=== PATIENT | male | born 1930 | race Caucasian/White ===

== ENCOUNTER 2018-10-04 08:07 | Inpatient (IN) | payer MEDICARE, OTHER ==
[2015-04-10 13:18] VITALS: Ht 175.3 cm; Wt 79.9 kg
[~2018-10-04] VITALS: Ht 175.3 cm; Wt 79.9 kg
[2018-10-04] VITALS (8 sets, daily range): BP systolic 103–138; BP diastolic 56–79
[~2018-10-04 08:07] MED LIST: AMI200 PO; ASPI81TA86 PO; ATOR20TA22 PO; ATOR20TA65 PO; BIS5 PO; CARV6.2574 PO; CEPH500C24 PO; CHOL200018 PO; CYA1000 PO; DOC100 PO; FLU60VIA41 IM; LEVO-85 PO; LEVO137T23 PO; METO25TA93 PO; METR45CR9 TP; OMEP-153 PO; OXYGENHOME INH; PNEU0.5D3 IM; SENN17.27 PO; SIMV-42 PO; SIMV-54 PO; TRET15GE13 TP; VIT-9 PO; WAR25 PO; WARF5TAB23 PO
--- NOTE | 2018-10-04 08:23 | ER Report ---
History and Physical Time Seen By MD: 08:23 Hx. of Stated Complaint: patient report that he has a bowel blockage. last bowel movement was 3 days ago HPI/ROS History of CABG and known inguinal hernia. On coumadin for a transient episode of afib. Presents to the ED for no BM in 3 days. Also reports worsening pain for a week at the site of his inguinal hernia, but he does not elaborate on the details. No n/v. Not passing gas. No fever/chills. No other complaints. Remainder of the 14 system rev: Yes Allergies: Coded Allergies: No Known Drug Allergies (Verified , 06/25/10) Home Meds Active Scripts Levothyroxine Sodium (LEVOTHYROXINE SODIUM) 137 Mcg Tablet, 1 TAB PO QDAY, #90 TAB 4 Refills Prov:MARCELLA JENKINS PHARMD 07/23/18 Warfarin Sodium (WARFARIN SODIUM) 5 Mg Tablet, 0.5 TAB PO QDAY, #90 TAB 3 Refills 1/2 tab Or 1 tab daily as directed by your doctor. Prov:MARCELLA JENKINS PHARMD 08/21/17 Carvedilol (COREG) 6.25 Mg Tablet, 1 TAB PO BID, #180 TAB 4 Refills Prov:MARCELLA JENKINS PHARMD 01/11/17 Reported Medications Oxygen (OXYGEN) Inha, 2 L INH HS, L 11/26/17 Cholecalciferol (Vitamin D3) (VITAMIN D) 2,000 Unit Tablet, 1 TAB PO QDAY, CAPSULE 05/03/15 Vit A/Vit C/Vit E/Zinc/Copper (PRESERVISION AREDS TABLET) 1 Each Tablet, 1 TAB PO QDAY, TAB 05/03/15 Aspirin (ASPIRIN EC) 81 Mg Tablet.dr, 1 TAB PO QDAY 04/13/14 Discontinued Reported Medications Cyanocobalamin (Vitamin B-12) (VITAMIN B-12) 1,000 Mcg Tablet, 0.5 TAB PO QDAY, CAPSULE 06/05/17 Reviewed Nurses Notes: Yes Old Medical Records Reviewed: Yes Hx Smoking: No Smoking Status: Former Smoker Exposure to Second Hand Smoke?: Yes Hx Substance Use Disorder: No Hx Alcohol Use: Yes Constitutional Vital Sign - Last 24 Hours 10/04/18 10/04/18 10/04/18 10/04/18 08:10 08:12 08:30 08:37 Temp 97.5 Pulse 74 68 Resp 24 B/P (MAP) 167/79 167/79 (108) 145/69 (94) Pulse Ox 85 94 O2 Delivery Room Air 10/04/18 10/04/18 10/04/18 10/04/18 08:42 09:00 09:30 09:42 Pulse 67 66 Resp 93 B/P (MAP) 154/76 (102) 146/68 (94) Pulse Ox 95 94 Physical Exam General Appearance: The patient is alert, has no immediate need for airway protection and no current signs of toxicity. Eyes: Pupils equal and round no injection. Respiratory: Chest is non tender, lungs are clear to auscultation. Cardiac: regular rate and rhythm Gastrointestinal: Abdomen is soft and mildly distended with diffuse TTP, no masses, bowel sounds normal. : large left inguinal hernia. Firm and unable to reduce. TTP Extremities have full range of motion and are non tender. Skin: No rashes or lesions. Medical Decision Making Data Points Result Diagram: 10/04/18 0822 10/04/18 0822 Laboratory Hematology Test 10/04/18 08:22 Red Blood Count 5.01 M/uL (4.00-5.60) Mean Corpuscular Volume 100.1 fL (80.0-96.0) Mean Corpuscular Hemoglobin 33.8 pg (26.0-33.0) Mean Corpuscular Hemoglobin Concent 33.7 g/dL (32.0-36.0) Red Cell Distribution Width 13.7 % (11.5-14.5) Mean Platelet Volume 7.7 fL (7.2-11.1) Neutrophils (%) (Auto) 85.4 % (39.4-72.5) Lymphocytes (%) (Auto) 4.8 % (17.6-49.6) Monocytes (%) (Auto) 9.3 % (4.1-12.4) Eosinophils (%) (Auto) 0.1 % (0.4-6.7) Basophils (%) (Auto) 0.4 % (0.3-1.4) Nucleated RBC Relative Count (auto) 0.0 /100WBC Neutrophils # (Auto) 13.8 K/uL (2.0-7.4) Lymphocytes # (Auto) 0.8 K/uL (1.3-3.6) Monocytes # (Auto) 1.5 K/uL (0.3-1.0) Eosinophils # (Auto) 0.0 K/uL (0.0-0.5) Basophils # (Auto) 0.1 K/uL (0.0-0.1) Nucleated RBC Absolute Count (auto) 0.01 K/uL Prothrombin Time 32.4 seconds (12.0-14.4) Prothromb Time International Ratio 3.08 Activated Partial Thromboplast Time 51 seconds (23-35) Sodium Level 139 mmol/L (137-145) Potassium Level 4.7 mmol/L (3.5-5.0) Chloride Level 102 mmol/L (98-107) Carbon Dioxide Level 21 mmol/L (22-30) Blood Urea Nitrogen 21 mg/dl (9-21) Creatinine 1.00 mg/dl (0.66-1.25) Glomerular Filtration Rate Calc > 60.0 Random Glucose 113 mg/dl (75-110) Lactate 2.2 mmol/L (0.7-2.1) Calcium Level 9.3 mg/dl (8.4-10.2) Total Bilirubin 2.1 mg/dl (0.2-1.3) Aspartate Amino Transf (AST/SGOT) 23 U/L (0-35) Alanine Aminotransferase (ALT/SGPT) 24 U/L (0-56) Alkaline Phosphatase 83 U/L (0-126) Total Protein 6.8 g/dl (6.3-8.2) Albumin 4.1 g/dl (3.5-5.0) Chemistry Test 10/04/18 08:22 White Blood Count 16.2 k/uL (4.5-11.0) Red Blood Count 5.01 M/uL (4.00-5.60) Hemoglobin 16.9 g/dL (14.0-18.0) Hematocrit 50.2 % (42.0-52.0) Mean Corpuscular Volume 100.1 fL (80.0-96.0) Mean Corpuscular Hemoglobin 33.8 pg (26.0-33.0) Mean Corpuscular Hemoglobin Concent 33.7 g/dL (32.0-36.0) Red Cell Distribution Width 13.7 % (11.5-14.5) Platelet Count 195 K/uL (150-450) Mean Platelet Volume 7.7 fL (7.2-11.1) Neutrophils (%) (Auto) 85.4 % (39.4-72.5) Lymphocytes (%) (Auto) 4.8 % (17.6-49.6) Monocytes (%) (Auto) 9.3 % (4.1-12.4) Eosinophils (%) (Auto) 0.1 % (0.4-6.7) Basophils (%) (Auto) 0.4 % (0.3-1.4) Nucleated RBC Relative Count (auto) 0.0 /100WBC Neutrophils # (Auto) 13.8 K/uL (2.0-7.4) Lymphocytes # (Auto) 0.8 K/uL (1.3-3.6) Monocytes # (Auto) 1.5 K/uL (0.3-1.0) Eosinophils # (Auto) 0.0 K/uL (0.0-0.5) Basophils # (Auto) 0.1 K/uL (0.0-0.1) Nucleated RBC Absolute Count (auto) 0.01 K/uL Prothrombin Time 32.4 seconds (12.0-14.4) Prothromb Time International Ratio 3.08 Activated Partial Thromboplast Time 51 seconds (23-35) Glomerular Filtration Rate Calc > 60.0 Lactate 2.2 mmol/L (0.7-2.1) Calcium Level 9.3 mg/dl (8.4-10.2) Total Bilirubin 2.1 mg/dl (0.2-1.3) Aspartate Amino Transf (AST/SGOT) 23 U/L (0-35) Alanine Aminotransferase (ALT/SGPT) 24 U/L (0-56) Alkaline Phosphatase 83 U/L (0-126) Total Protein 6.8 g/dl (6.3-8.2) Albumin 4.1 g/dl (3.5-5.0) Coagulation Test 10/04/18 08:22 Prothrombin Time 32.4 seconds Prothromb Time International Ratio 3.08 Activated Partial Thromboplast Time 51 seconds ED Course/Re-evaluation ED Course Incarcerated left inguinal hernia. Pt. otherwise stable. INR 3, so given Vit K and FFP. Dr. Toya Monroy is in the ED, and will take the pt. to the OR for emergent of incarcerated hernia. Decision to Disposition Date: Oct 04, 2018 Decision to Disposition Time: 11:16 Depart Departure Latest Vital Signs Vital Signs Date Time Temp Pulse Resp B/P (MAP) Pulse Ox O2 Delivery O2 Flow Rate FiO2 10/04/18 09:42 66 93 94 10/04/18 09:30 146/68 (94) 10/04/18 08:10 97.5 Room Air Impression: Primary Impression: Incarcerated left inguinal hernia Condition: Improved Disposition: ADMIT FROM ER TO OR Referrals: NIXON VERDUGO MD (PCP) GLORY HARRINGTON MD Oct 04, 2018 08:23
[2018-10-04] MEDS ORDERED: NS(*) 0.9% 500 ML BAG 500 ML IV ONE ×2 (08:25→10:30)
[2018-10-04 08:36] LABS: PLATELET COUNT, AUTOMATED 195 K/uL (150-450)
[2018-10-04 08:48] LABS: INR 3.08
--- NOTE | 2018-10-04 09:50 | RADIOLOGY IMAGING REPORT ---
FACILITY: [facility] - [place] PATIENT NAME: Tim Fowler : 1930 MR: [id number] V: [id number] EXAM DATE: ORDERING PHYSICIAN: GLORY HARRINGTON TECHNOLOGIST: Location: [facility] Patient: Tim Fowler : 1930 Visit/Account:[id number] Date of Sevice: 10/04/2018 CT scan of the abdomen and pelvis with contrast. HISTORY: Possible incarcerated hernia. COMPARISON: Abdominal ultrasound 04/15/2015. 3 mm and [address] images were obtained of the abdomen and pelvis using 85 mL intravenous I sovue-370. No oral contrast. One of the following dose optimization techniques was utilized in the pe rformance of this exam: Automated exposure control; adjustment of the mA and/or kV according to the p atient's size; or use of an iterative reconstruction technique. Specific details can be referenced in the facility's radiology CT exam operational policy. FINDINGS: Streaky densities are present in the left posterior lung base. A tiny amount of fluid is present in t he left posterior costophrenic sulcus. The coronary arteries are partially calcified. A small direct hiatal hernia is present. The liver and spleen are normal in size. The gallbladder is upper limits of normal in size. The bile ducts are unremarkable. The pancreas is normal in size. The visceral arteries are calcified. The abdo enmanuel aorta and iliac arteries are calcified and tortuous. The kidneys and adrenal glands are normal in size. Multiple cysts measuring up to 3.9 cm in diameter are scattered in the right kidney. Several cysts measuring less than 2 cm in diameter are scattered in the left kidney. A large inguinal hernia is present on the left. The hernia sac measures 9.1 cm in greatest transverse diameter. The hernia contains a loop of sigmoid colon. A moderate amount of fluid surrounds the inca rcerated bowel loop. Mild mural thickening and a few diverticula are present in the incarcerated loop . Moderate numbers of diverticula are scattered elsewhere in the left colon. Moderate amount of gas a nd stool are scattered in the transverse colon and right colon. The appendix is not well-visualized. No free air is identified. Mild edema is present in the sigmoid mesentery. The urinary bladder is nonopacified. The bladder slightly displaced to the right. The prostate gland is enlarged measuring 6.4 cm in transverse diameter. The prostate gland is partially calcified. Degen erative changes are present in the spine and hips. IMPRESSION: Large incarcerated left inguinal hernia. Enlarged prostate gland. Moderate colonic diverticulosis. Atherosclerosis. Bilateral renal cysts. Trace left pleural effusion. Left basilar subsegmental atelectasis or pleural parenchymal scars. Small hiatal hernia. Results were discussed with GLORY HARRINGTON at 10/04/2018 9:45 AM. Report Dictated By: Mo Muhammad MD at 10/04/2018 9:34 AM Report E-Signed By: Mo Muhammad MD at 10/04/2018 9:46 AM WSN:[id number]
[2018-10-04] MEDS ORDERED: PHYTONADIONE 10 MG/ML AMP IM ONE (09:55)
[2018-10-04] MEDS ORDERED: IOPAMIDOL 76% 100 ML INFUS BTL 100 ML ONE (10:01)
--- NOTE | 2018-10-04 10:04 | EKG ---
FACILITY: [facility] PATIENT NAME: LEORA TAYLOR : [id number] MR: [id number] V: [id number] EXAM DATE: ORDERING PHYSICIAN: GLORY HARRINGTON TECHNOLOGIST: [place]ER[place] Test Reason : ABD PAIN Blood Pressure : / mmHG Vent. Rate : 065 BPM Atrial Rate : 065 BPM P-R Int : 208 ms QRS Dur : 104 ms QT Int : 408 ms P-R-T Axes : 034 020 041 degrees QTc Int : 424 ms Normal sinus rhythm Inferior infarct , age undetermined Abnormal ECG Confirmed by MAGNO MCCOY ([id number]) on 10/04/2018 5:43:51 PM Referred By: LEN Confirmed By:MAGNO MCCOY
[2018-10-04] MEDS ORDERED: PHYTONADIONE (*) 10 MG/ML AMP 10 MG in NS(*) 0.9% 50 ML BAG 50 ML IVPB ONE (10:05)
[2018-10-04] MEDS ORDERED: NORMOSOL R SOLN(*) 1000 ML BAG 1,000 ML IV ONE (10:30)
[2018-10-04] MEDS ORDERED: FAMOTIDINE(*) 20MG/50ML PREMIX 50 ML IVPB ONE (10:30)
--- NOTE | 2018-10-04 10:35 | Gen Surgery History & Physical ---
History of Present Illness Chief Complaint Constipation History of Present Illness 88 year old male who has a longstanding history of L inguinal hernia. He states that he noted his groin bulging three days ago. He has not had a bowel movement since that time. There has been some associated pain in the groin. He denies any abdominal pain or nausea/vomiting. Last meal was yesterday morning. No fevers. He is on coumadin for a history of afib ten years ago. No previous abdominal surgeries. History Unable To Obtain Past Medical: Medical history has been reviewed Home Meds Active Scripts Levothyroxine Sodium (LEVOTHYROXINE SODIUM) 137 Mcg Tablet, 1 TAB PO QDAY, #90 TAB 4 Refills Prov:MARCELLA JENKINS PHARMD 07/23/18 Warfarin Sodium (WARFARIN SODIUM) 5 Mg Tablet, 0.5 TAB PO QDAY, #90 TAB 3 Refills 1/2 tab Or 1 tab daily as directed by your doctor. Prov:MARCELLA JENKINS PHARMD 08/21/17 Carvedilol (COREG) 6.25 Mg Tablet, 1 TAB PO BID, #180 TAB 4 Refills Prov:MARCELLA JENKINS PHARMD 01/11/17 Reported Medications Oxygen (OXYGEN) Inha, 2 L INH HS, L 11/26/17 Cholecalciferol (Vitamin D3) (VITAMIN D) 2,000 Unit Tablet, 1 TAB PO QDAY, CAPSULE 05/03/15 Vit A/Vit C/Vit E/Zinc/Copper (PRESERVISION AREDS TABLET) 1 Each Tablet, 1 TAB PO QDAY, TAB 05/03/15 Aspirin (ASPIRIN EC) 81 Mg Tablet.dr, 1 TAB PO QDAY 04/13/14 Discontinued Reported Medications Cyanocobalamin (Vitamin B-12) (VITAMIN B-12) 1,000 Mcg Tablet, 0.5 TAB PO QDAY, CAPSULE 06/05/17 Allergies: Coded Allergies: No Known Drug Allergies (Verified , 06/25/10) Patient History: FH myocardial infarction male first degree age known FH: CHF (congestive heart failure) FATHER, , Age:79 FH: colon cancer FATHER, , Age:79, Onset:64 FH: diabetes mellitus BROTHER OR SISTER, , Age:81 FH: myocardial infarction FATHER, , Age:79, Onset:54 FH: stroke BROTHER OR SISTER, , Age:81 Review of Systems All Systems Reviewed/Normal: Yes, Except as Noted Constitutional: No Fever Cardiovascular: No Chest Pain Respiratory: No Shortness of Breath Gastrointestinal: No Nausea, No Vomiting; Constipation Exam General Appearance: Alert, Awake, No Acute Distress Neuro: No Gross deficits ENT: Moist Mucous Membranes Cardiovascular: Regular Rate and Rhythm Respiratory: No Respiratory Distress GI: Abd Soft and Non-Tender : Other (there is an incarcerated hernia present in the left groin; there is overlying cutaneous erythema; it is tender to palpation) Extremities: Warm, Perfused Integumentary: Skin Intact without Lesion / Mass Psych: Alert & Oriented X3, Appropriate Mood & Affect Medical Decision Making Data Points Result Diagram: 10/04/1882110/04/18 08 EKG / Imaging Monitor Interpretation: Normal Sinus Rhythm Assessment and Plan Problems: (1) Incarcerated left inguinal hernia Status: Acute Assessment & Plan: 10/04/18: 88 year old male with history of CAD s/p CABG in 2008 with paroxysmal afib post op, chronically anticoagulated on Coumadin who presents with three day history of incarcerated left inguinal hernia. Clinical and radiographic findings are consistent with incarcerated sigmoid colon, likely bowel ischemia. He has a leukocytosis, overlying cutaneous erythema, and a lactic acidosis. I have explained that if resection of the sigmoid colon is indicated, that he will need a colostomy. We will repair the hernia primarily if there is bowel resection, we will use mesh if there is no incarceration. Due to his anticoagulation, will reverse with 2U FFP and Vitamin K 10mg IV x 1. Will start zosyn. I have recommended diagnostic laparoscopy, possible bowel resection, possible ostomy, repair of L inguinal hernia with possible mesh. Informed consent obtained. Will recheck INR after FFP infusion, and proceed to surgery once INR<2. (2) Paroxysmal atrial fibrillation Status: Acute Time Spent: > 30 min Venous Thromboembolism VTE Risk Physician Assess for VTE Risk: Yes Antithrombotics Is Pt On Any Antithrombotics?: Yes YONI MICHAUD MD Oct 04, 2018 10:35
[2018-10-04] MEDS: PIPERACILLIN/TAZO*3.375GM VIAL 3.375 GM in NS(*) 0.9% 100 ML MINI-BAG 100 ML IVPB SCH ×3 (10:53→22:00)
--- NOTE | 2018-10-04 11:00 | RADIOLOGY IMAGING REPORT ---
FACILITY: [facility] - [place] PATIENT NAME: Tim Fowler : 1930 MR: [id number] V: [id number] EXAM DATE: ORDERING PHYSICIAN: GLORY HARRINGTON TECHNOLOGIST: Location: [facility] Patient: Tim Fowler : 1930 Visit/Account:[id number] Date of Sevice: 10/04/2018 Technique: CHEST SINGLE AP HISTORY: Preop Comparison studies: 04/16/2015 FINDINGS: Increased central vascular markings are noted. There are scattered interstitial lung markin gs. No pleural effusion. The cardiac silhouette is unchanged. IMPRESSION: 1. Unchanged mild central vascular congestion. 2. Chronic lung findings. Report Dictated By: Blaze Frankel DO at 10/04/2018 10:55 AM Report E-Signed By: Blaze Frankel DO at 10/04/2018 10:57 AM WSN:[id number]
[2018-10-04 13:16] LABS: INR 1.52
[2018-10-04] MEDS ORDERED: PROPOFOL EMUL(*) 10MG/ML 20 ML 20 ML ONE (15:06)
[2018-10-04] MEDS ORDERED: ONDANSETRON 4 MG/2 ML VIAL ONE (15:06)
[2018-10-04] MEDS ORDERED: ROCURONIUM BROM 10 MG/ML 10 ML ONE (15:06)
[2018-10-04] MEDS ORDERED: PHENYLEPHRINE 10 MG/1 ML VIAL ONE (15:06)
[2018-10-04] MEDS ORDERED: DEXAMETHASONE SOD PHOS 10MG/ML ONE (15:06)
[2018-10-04] MEDS ORDERED: MIDAZOLAM 2 MG/2 ML VIAL ONE (15:14)
[2018-10-04] MEDS ORDERED: ROPIVACAINE 0.5% 20 ML VIAL ONE ×2 (15:15→17:47)
[2018-10-04] MEDS ORDERED: LIDO/EPI 1% MDV 1:100,000 20ML INFIL ONE (15:15)
[2018-10-04] MEDS ORDERED: ROPIVACAINE 0.2% 20 ML VIAL ONE (15:15)
[2018-10-04] MEDS ORDERED: BUPIV/EPI 0.25% 1:200,000 50ML INFIL ONE (15:15)
[2018-10-04] MEDS ORDERED: NS(*) 0.9% 250 ML BAG 250 ML ONE (15:18)
[2018-10-04] MEDS ORDERED: NS(*) 0.9% 500 ML BAG 500 ML ONE (15:18)
[2018-10-04] MEDS ORDERED: fentaNYL CITR 100 MCG/2 ML AMP ONE ×2 (16:04→16:08)
[2018-10-04] MEDS ORDERED: HYDROmorphone HCL 2 MG/ML SDV ONE (17:27)
[2018-10-04] MEDS ORDERED: SUGAMMADEX SOD 500 MG/5 ML SDV ONE (18:06)
[2018-10-04] MEDS ORDERED: LR(*) 1000 ML BAG 1,000 ML IV PRN (18:32)
[2018-10-04] MEDS ORDERED: ONDANSETRON 4 MG/2 ML VIAL IVP PRN (18:35)
[2018-10-04] MEDS ORDERED: HYDROmorphone HCL 2 MG/ML SDV IVP PRN (18:35)
[2018-10-04] MEDS ORDERED: NALOXONE HCL 0.4 MG/ML VIAL IVP PRN (18:35)
--- NOTE | 2018-10-04 18:41 | Post Operative Note ---
Operative Note - ENT Operative Day Date: Oct 04, 2018 Time: 18:39 Physicians Surgeon: Toya Michaud MD Anesthesia: General endotracheal, Dr. Victor Diagnosis Pre-Op Diagnosis: Incarcerated Left Inguinal hernia Post-Op Diagnosis: same Procedure Findings: viable colon, inflamed; ischemic epiploica Procedure(s): Exploratory laparotomy, reduction of left inguinal hernia, primary repair left inguinal hernia Specimen Removed:(Maybe N/A): n/a Complications: none apparent Fluids Fluids: 2300mL Estimated Blood Loss: 25mL Dictated Date OP Note Dictated: Oct 04, 2018 Time OP Note Dictated: 18:40 TOYA MICHAUD MD Oct 04, 2018 18:41
[2018-10-04] MEDS ORDERED: ACETAMINOPHEN(*)1000 MG/100 ML 100 ML IVPB SCH ×2 (19:00→22:00)
--- NOTE | 2018-10-04 19:48 | OPERATIVE REPORT 1 ---
EVENT DATE: October 04, 2018 SURGEON: Toya Monroy MD ANESTHESIOLOGIST: Tim Victor MD ANESTHESIA: General endotracheal tube. PREOPERATIVE DIAGNOSIS Incarcerated left inguinal hernia. POSTOPERATIVE DIAGNOSIS Incarcerated left inguinal hernia. PROCEDURES PERFORMED 1. Exploratory laparotomy. 2. Reduction of left inguinal hernia. 3. Primary repair, left inguinal hernia. ESTIMATED BLOOD LOSS 25 mL. SPECIMENS None. COMPLICATIONS None apparent. INDICATION FOR THE PROCEDURE The patient is an 88-year-old male with a history of CAD, status post CABG, who presents with a three-day history of left groin bulge and constipation. He underwent workup, which demonstrated a leukocytosis as well as a mild lactic acidosis, and his exam was notable for cutaneous erythema in a region of an incarcerated left inguinal hernia. CT imaging demonstrated a loop of sigmoid colon entrapped within the hernia and associated fluid. The patient is anticoagulated with Coumadin secondary to a history of paroxysmal AFib; therefore, his anticoagulation was reversed with two units of FFP and vitamin K 10 mg. His INR subsequently normalized to 1.5, and we did perform an echocardiogram to confirm an ejection fraction which was improved from his previous echo in 2014 and approximately 40% on most recent echo today. We, therefore, proceeded to the operating room for exploratory laparotomy, possible bowel resection, possible ostomy, and left inguinal hernia repair. The risks, benefits, and alternatives of surgical intervention were explained to the patient. Informed consent was obtained. DETAILS OF THE PROCEDURE Patient was brought to the operating room. He was laid in the supine position. An arterial line was placed by Anesthesia. General anesthesia was then induced without complication. Prior to the induction of anesthesia, bilateral sequential compression devices were placed on his lower extremities. We then positioned, prepped, and draped the patient in the usual sterile fashion, and a timeout was performed confirming the patient, the procedure, and the administration of preoperative antibiotics with Zosyn in the Emergency Department, followed by Ancef 2 g IV in the OR prior to incision. The operation commenced with gaining access to the abdomen through a lower midline abdominal incision. Bovie electrocautery was used to carry the dissection down through the subcutaneous tissues until the abdomen was entered. The hernia was identified, and there was entrapped sigmoid colon as was anticipated, which we were able to reduce. The epiploica were noted to be significantly inflamed, and several of them were necrotic. The colon was also noted to be somewhat inflamed and edematous; however, it did appear viable, and there were no necrotic regions. The necrotic epiploica were excised, and the remainder of the bowel was examined and noted to be pink and well perfused. The lateral attachments of his descending colon appeared to be somewhat entrapped within the hernia sac as well, and so these were taken down with electrocautery. Once we were satisfied with our examination of the bowel and reduction of the hernia, we turned our attention to the left groin. An incision was made, and Bovie electrocautery was used to carry the dissection down through the external oblique fascia until we encountered the inguinal canal. The hernia sac and cord structures were dissected out circumferentially using a combination of blunt and electrocautery dissection. Notably, there was a substantial amount of tissue edema and inflammation in this region. We were able to dissect the hernia sac away from the cord and then created a pursestring around the base of the hernia sac, transected it, and handed it off the field. The hernia sac was then reduced. At this juncture, I elected with a primary Ilda repair of the hernia defect as there was so much edema and inflammation within the groin region, and there was still the potential for bowel resection. Therefore, I proceeded with primary suture repair using 2-0 Prolene in an interrupted fashion between the conjoined tendon and the Yaakov ligament. This was done sequentially until the floor had been reapproximated. We then closed the remainder of the wound in layers using 2-0 Vicryl sutures for the deep layers and then 3-0 Vicryl sutures for Yariel fascia and the more superficial layers. We then noted that the left testicle was in excellent position, and the cord structures were all intact. The dermis was reapproximated using 3-0 Vicryl sutures in a deep dermal fashion. We then turned our attention back to the abdomen, reinspected the descending and sigmoid colon. Again, there was some mild inflammation, but the bowel was all pink and viable. We ran the entirety of the small bowel, and it was all noted to be without evidence of any injury and pink and viable. The remainder of the colon was additionally inspected and was all pink, well perfused, and viable. At this juncture, we felt comfortable with closure of the abdomen. Sutures of 2-0 looped PDS were used to close the fascia. The skin and subcutaneous tissue were copiously irrigated with warm normal saline, and the dermis was reapproximated with 3-0 Vicryl sutures in a deep dermal interrupted fashion. Dermabond was then applied to both of the incisions. At the completion of the case, sponge, instrument, and needle counts were correct times two. I was present and scrubbed for the duration of the procedure and directly responsible for directing all surgical decision making. KATHY
[2018-10-04] MEDS: CARVEDILOL 6.25 MG TAB PO SCH (21:27)
[2018-10-04] MEDS: DOCUSATE SODIUM 100 MG CAP PO SCH (21:27)
[2018-10-05] VITALS (8 sets, daily range): BP systolic 100–134; BP diastolic 38–67
[2018-10-05] MEDS: ACETAMINOPHEN(*)1000 MG/100 ML 100 ML IVPB SCH ×4 (02:59→20:56)
[2018-10-05] MEDS: PIPERACILLIN/TAZO*3.375GM VIAL 3.375 GM in NS(*) 0.9% 100 ML MINI-BAG 100 ML IVPB SCH (04:08)
[2018-10-05 05:36] LABS: PLATELET COUNT, AUTOMATED 144 K/uL (150-450)
[2018-10-05 05:42] LABS: INR 1.27
[2018-10-05] MEDS: LEVOTHYROXINE SOD 0.137 MG TAB PO SCH (05:50)
[2018-10-05] MEDS: CARVEDILOL 6.25 MG TAB PO SCH ×2 (08:26→20:56)
[2018-10-05] MEDS: DOCUSATE SODIUM 100 MG CAP PO SCH ×2 (08:29→20:57)
[2018-10-05] MEDS: ENOXAPARIN 40 MG/0.4ML SYR SC SCH (08:30)
--- NOTE | 2018-10-05 10:09 | General Surgery Progress Note ---
Subjective Progress Notes Subjective Wants to go home. Denies pain. Tolerating clear liquids and is hungry. No BM. Discussed with family and patient plan for discharge as he lives at home alone, and does not currently have running water. Patient Complains of: Cardiovascular: No: Chest Pain Respiratory: No: Shortness of Breath Gastrointestinal: No Nausea, No Vomiting, No Bowel Movement Physical Exam Vital Signs Date Time Temp Pulse Resp B/P (MAP) Pulse Ox O2 Delivery O2 Flow Rate FiO2 10/05/18 08:21 95 Oxy Mask 4.0 10/05/18 06:56 97.8 57 16 129/57 (81) Intake and Output 10/05/18 07:00 Intake Total 3811 ml Output Total 875 ml Balance 2936 ml Intake Oral 100 ml IV Total 3711 ml Output Urine Total 875 ml # Bowel Movements 0 General Appearance: Alert, Awake, No Acute Distress Neuro: No Gross deficits ENT: Moist Mucous Membranes Cardiovascular: Regular Rate and Rhythm Respiratory: No Respiratory Distress GI: Other (soft, nondistended, minimal julee incisional tenderness; dermabond intact, some peripheral ecchymosis at midline incision and left groin incision; no erythema, no drainage, dermabond intact) Extremities: Warm, Perfused Integumentary: Skin Intact without Lesion / Mass Psych: Alert & Oriented X3, Appropriate Mood & Affect Result Diagram: 10/05/1851110/05/18511 Monitor Interpretation: Normal Sinus Rhythm Assessment and Plan Problems: (1) Incarcerated left inguinal hernia Status: Acute Assessment & Plan: 10/04/18: 88 year old male with history of CAD s/p CABG in 2008 with paroxysmal afib post op, chronically anticoagulated on Coumadin who presents with three day history of incarcerated left inguinal hernia. Clinical and radiographic findings are consistent with incarcerated sigmoid colon, likely bowel ischemia. He has a leukocytosis, overlying cutaneous erythema, and a lactic acidosis. I have explained that if resection of the sigmoid colon is indicated, that he will need a colostomy. We will repair the hernia primarily if there is bowel resection, we will use mesh if there is no incarceration. Due to his anticoagulation, will reverse with 2U FFP and Vitamin K 10mg IV x 1. Will start zosyn. I have recommended diagnostic laparoscopy, possible bowel resection, possible ostomy, repair of L inguinal hernia with possible mesh. In formed consent obtained. Will recheck INR after FFP infusion, and proceed to surgery once INR<2. 10/05/18: POD#1 s/p exploratory laparotomy, reduction of left inguinal hernia, left inguinal hernia repair. Doing well, tolerating clears, advance to regular diet and HLIVF. Continue bowel regimen with Colace. D/C castro. Resume home Coumadin, check INR in AM. Social work consult and PT/OT consult for tomorrow. Given that he lives alone and does not have running water, will plan for discharge to SNF, and then to live with family while recovering. (2) Paroxysmal atrial fibrillation Status: Acute Assessment & Plan: 10/05/18: In sinus rhythm. Resume home Coumadin. Time Spent: > 30 min Exam Sepsis Risk: No Definite Risk YONI MICHAUD MD Oct 05, 2018 10:09
[2018-10-05] MEDS ORDERED: oxyCODONE HCL 5 MG CAP PO PRN (10:20)
--- NOTE | 2018-10-05 11:04 | Medical Nutrition Therapy ---
Nutrition Anthropometrics Height (Inches): 69.00 Height (Calculated Centimeters: 175.945074 Weight (Pounds): 176 Weight (Calculated Kilograms): 79.917 BMI: 26 [place] Nutrition Score: Probably Inadequate [place] Nutrition Risk Score: 18 Dietary Referral Nutrition Risk Factors: Nutrition Risk Comment: Physical Findings Physical Appearance: Overweight BMI 25-29 Skin Appearance Skin Appearance: Edema Edema Location Modifier: Edema Location: Type of Edema: Degree of Edema: Gastrointestinal Symptoms GI Symtoms: Tube Present: Bowel Sounds: Recent Bowel Pattern: Stool Characteristics: Nutrition/Food History No Significant Nutr. HX, Multivitamins/Minerals Good Nutritional Diagnosis Past Medical History: CAD, Hypercholesterolemia, Hypothyroid Nutritional Acuity: 4-Low Energy Requirement: 1899 (MSJ AF1.3) Protein Requirement: 80 (1g/kg) Fluid Requirement: 1899 (1mL/kcal) Diet Type: Diet as Tolerated ALVIN/REG Nutrition Intervention: Cont diet as ordered Drug: Warfarin Drug/Nutrition Recommendations: No High Vitamin K Foods Nutrition Monitoring & Eval Nutrition Goals: Eat 50-100% Meal, Eat 75-100% Meal Nutrition Monitoring: Monitor meal intake. RD Patient Assessment Time: [address] Assessment Type: RD Assessment Patient Nutrition Acuity: 4-Low Follow Up Date: Oct 10, 2018 Nutritional Comment: Reviewed pt medical hx. Pt underwent hernia repair, spoke with RN and pt will not be getting a colostomy. Monitor intake and diet tolerance. GANESH ELAM Oct 05, 2018 11:04
--- NOTE | 2018-10-05 11:17 | Antimicrobial Stewardship ---
Antimicrobial Time Out Antimicrobial Stewardship MD Service: Other (GENERAL SURGERY) Indications: Other (GI BLEED) Antimicrobial Used ZOSYN 3.375G IV Q6H Start Date: Oct 04, 2018 Culture Results: N/A Eligible for PO Conversion Eligable for PO Conversion: Yes Reviewed with Provider Reviewed w/ Provider on Rounds: No Comments Comments PRE AND POST OP ABX COVERAGE - STOPPED AFTER 24 HRS HILARY STRICKLAND Oct 05, 2018 11:17
[2018-10-05] MEDS: WARFARIN SOD 5 MG TAB PO SCH (17:01)
[2018-10-05] MEDS ORDERED: NORMOSOL R SOLN(*) 1000 ML BAG 1,000 ML IV ONE (18:35)
[2018-10-06] VITALS (10 sets, daily range): BP systolic 117–158; BP diastolic 62–91
[2018-10-06] MEDS: ACETAMINOPHEN(*)1000 MG/100 ML 100 ML IVPB SCH (03:00)
[2018-10-06] MEDS: LEVOTHYROXINE SOD 0.137 MG TAB PO SCH (06:00)
[2018-10-06 06:09] LABS: INR 1.38
--- NOTE | 2018-10-06 07:47 | General Surgery Progress Note ---
Subjective Progress Notes Subjective No complaints this morning. Not much pain. Tolerating diet. Physical Exam Vital Signs Date Time Temp Pulse Resp B/P (MAP) Pulse Ox O2 Delivery O2 Flow Rate FiO2 10/06/18 07:21 94 Nasal Cannula 2.0 10/06/18 07:21 99.0 56 20 137/70 (92) Intake and Output 10/06/18 07:00 Intake Total 2890 ml Output Total 250 ml Balance 2640 ml Intake Oral 2290 ml IV Total 600 ml Output Urine Total 250 ml # Voids 5 General Appearance: Alert, Awake, No Acute Distress, Afebrile GI: Other (Soft, appropriate postop TTP, incisions look good without erythema or drainage.) Extremities: Warm, Perfused Result Diagram: 10/05/18 0512 10/06/18 0554 Monitor Interpretation: Normal Sinus Rhythm Assessment and Plan Problems: (1) Incarcerated left inguinal hernia Status: Acute Assessment & Plan: 10/04/18: 88 year old male with history of CAD s/p CABG in 2008 with paroxysmal afib post op, chronically anticoagulated on Coumadin who presents with three day history of incarcerated left inguinal hernia. Clinical and radiographic findings are consistent with incarcerated sigmoid colon, likely bowel ischemia. He has a leukocytosis, overlying cutaneous erythema, and a lactic acidosis. I have explained that if resection of the sigmoid colon is indicated, that he will need a colostomy. We will repair the hernia primarily if there is bowel resection, we will use mesh if there is no incarceration. Due to his anticoagulation, will reverse with 2U FFP and Vitamin K 10mg IV x 1. Will start zosyn. I have recommended diagnostic laparoscopy, possible bowel resection, possible ostomy, repair of L inguinal hernia with possible mesh. Informed consent obtained. Will recheck INR after FFP infusion, and proceed to surgery once INR<2. 10/05/18: POD#1 s/p exploratory laparotomy, reduction of left inguinal hernia, left inguinal hernia repair. Doing well, tolerating clears, advance to regular diet and HLIVF. Continue bowel regimen with Colace. D/C castro. Resume home Coumadin, check INR in AM. Social work consult and PT/OT consult for tomorrow. Given that he lives alone and does not have running water, will plan for discharge to SNF, and then to live with family while recovering. 10/06/18: POD#2. Doing well. Ready for discharge, just need to make sure he has a safe place to go after discharge as he lives alone without running water. He tells me his daughter has a room for him at [facility]. Will ask case management to check on this. He will then apparently live with his family in [place] after their house is ready for him. Will have PT/OT see him today. Continue coumadin, H2 shaila, etc. (2) Paroxysmal atrial fibrillation Status: Acute Assessment & Plan: 10/05/18: In sinus rhythm. Resume home Coumadin. Condition STable. Time Spent: < 30 min Exam Sepsis Risk: No Definite Risk MAGNO GIBSON MD Oct 06, 2018 07:47
[2018-10-06] MEDS ORDERED: MAGNESIUM HYDROXIDE* 30ML UDCP PO PRN (08:35)
[2018-10-06] MEDS ORDERED: BISACODYL 10 MG SUPP PR ONE ×2 (08:35→12:55)
[2018-10-06] MEDS ORDERED: ACETAMINOPHEN 325 MG TAB PO PRN (08:35)
[2018-10-06] MEDS ORDERED: POLYETHYLENE GLYCOL 17 GM PKT PO SCH (09:00)
[2018-10-06] MEDS: FAMOTIDINE 20 MG TAB PO SCH ×2 (09:14→21:49)
[2018-10-06] MEDS: PSYLLIUM 28% 1 PACKET PO SCH (09:14)
[2018-10-06] MEDS: DOCUSATE SODIUM 100 MG CAP PO SCH ×2 (09:14→21:48)
[2018-10-06] MEDS: CARVEDILOL 6.25 MG TAB PO SCH ×2 (09:14→21:49)
[2018-10-06] MEDS: ENOXAPARIN 40 MG/0.4ML SYR SC SCH (09:15)
--- NOTE | 2018-10-06 09:23 | NUR ---
Occupational Therapy Impression Mod (I) supine to sit with HOB raised. SBA ambulation in room with no assistive device. Recommend use of RW at [facility]. Independent oral care/grooming standing sinkfront. Independent LB dressing. SpO2 WNL on 4L throughout tx. No report of pain. Recommend discharge to [facility] with HH services when medically appropriate. Occupational Therapy Goals Patient's Goal
--- NOTE | 2018-10-06 12:02 | NUR ---
This Physical Therapist or Mannequin Molder was present for the entire physical therapy session directing the services, making the skilled judgement, and was not engaged in treating another patient or doing another task at the same time as the treatment session. Addendum: 10/06/18 at 1202 by SD TAYLOR PT Amended: Links added.
--- NOTE | 2018-10-06 12:02 | NUR ---
Physical Therapy Impression Pt eval complete. Pt had a good tolerance for mobility, and reported no pain only some discomfort near incision site. Pt required SBA for sit<>stand xfers, did not require any AD to complete transfers.Pt ambulated 225 ft w/ CGAx1 and 4L of O2. Pt was left sitting in chair, with oxygen and chair alarm on. PT encouraged use of rolling walker for future ambulation. Pt safe to discharge when medically clear. HH rec at discharge. Physical Therapy Goals Patient's Goals
[2018-10-06] MEDS: WARFARIN SOD 5 MG TAB PO SCH (17:00)
[2018-10-06] MEDS ORDERED: NORMOSOL R SOLN(*) 1000 ML BAG 1,000 ML IV ONE (18:06)
--- NOTE | 2018-10-06 18:35 | Miscellaneous Provider Note ---
Miscellaneous Provider Note Note Just after my evening rounds on Mr. Fowler, his RN approached me and told me that he was eating dinner and swallowed a piece of chicken and it became lodged in his esophagus. This has happened before but not for a couple of years. It usually passes after about 15 minutes. We had him walk the halls but the meat b olus has not passed after 45 minutes and so I recommended EGD with removal of the meat bolus. I have explained the procedure, alternatives, risks, expected recovery with him in detail. He indicates his understanding of this discussion and his questions have been answered. He would like to proceed with EGD with foreign body removal. MAGNO GIBSON MD Oct 06, 2018 18:35
[2018-10-06] MEDS ORDERED: fentaNYL CITR 100 MCG/2 ML AMP ONE (18:45)
[2018-10-06] MEDS ORDERED: PROPOFOL EMUL(*) 10MG/ML 20 ML 20 ML ONE (18:50)
[2018-10-06] MEDS ORDERED: LIDOCAINE 2% IV 100 MG/5ML SYR ONE (18:50)
[2018-10-06] MEDS ORDERED: DEXAMETHASONE SOD 4 MG/ML VIAL ONE (19:01)
[2018-10-06] MEDS ORDERED: ONDANSETRON 4 MG/2 ML VIAL ONE (19:11)
[2018-10-06] MEDS: PANTOPRAZOLE SOD 40 MG TABEC PO SCH (21:49)
--- NOTE | 2018-10-06 22:00 | NUR ---
Pt remains agitated, confused after EGD procedure tonight. Lung sounds coarse with wheezing throughout. Increased oxygen needs. Dr. Burch phoned--see note. Daughter, Umm phoned--came to help try to reorient pt.
[2018-10-06] MEDS ORDERED: FUROSEMIDE 20 MG/2 ML VIAL IVP ONE (22:20)
[2018-10-06] MEDS ORDERED: ALBUTEROL/IPRATROPIUM 3 ML NEB NEB PRN (22:20)
[2018-10-07] VITALS (9 sets, daily range): BP systolic 96–133; BP diastolic 50–72
[2018-10-07] MEDS: LEVOTHYROXINE SOD 0.137 MG TAB PO SCH (05:22)
[2018-10-07] MEDS ORDERED: POLYETHYLENE GLYCOL 17 GM PKT PO PRN (08:15)
--- NOTE | 2018-10-07 08:19 | General Surgery Progress Note ---
Subjective Progress Notes Subjective Feels unsteady with ambulation. No pain. Physical Exam Vital Signs Date Time Temp Pulse Resp B/P (MAP) Pulse Ox O2 Delivery O2 Flow Rate FiO2 10/07/18 07:43 98.5 66 20 133/65 (87) 90 Nasal Cannula 3.0 Intake and Output 10/07/18 07:00 Intake Total 1690 ml Output Total 650 ml Balance 1040 ml Intake Oral 1140 ml IV Total 550 ml Output Urine Total 650 ml # Voids 18 # Bowel Movements 3 General Appearance: Alert, Awake, No Acute Distress, Afebrile GI: Soft and Non-Tender (Midline incision and left groin incision look good without erythema or drainage.) Extremities: Warm, Perfused Result Diagram: 10/05/18 0512 10/06/18 0554 Monitor Interpretation: Normal Sinus Rhythm Assessment and Plan Problems: (1) Incarcerated left inguinal hernia Status: Acute Assessment & Plan: 10/04/18: 88 year old male with history of CAD s/p CABG in 2008 with paroxysmal afib post op, chronically anticoagulated on Coumadin who presents with three day history of incarcerated left inguinal hernia. Clinical and radiographic findings are consistent with incarcerated sigmoid colon, likely bowel ischemia. He has a leukocytosis, overlying cutaneous erythema, and a lac tic acidosis. I have explained that if resection of the sigmoid colon is indicated, that he will need a colostomy. We will repair the hernia primarily if there is bowel resection, we will use mesh if there is no incarceration. Due to his anticoagulation, will reverse with 2U FFP and Vitamin K 10mg IV x 1. Will start zosyn. I have recommended diagnostic laparoscopy, possible bowel resection, possible ostomy, repair of L inguinal hernia with possible mesh. Informed consent obtained. Will recheck INR after FFP infusion, and proceed to surgery once INR<2. 10/05/18: POD#1 s/p exploratory laparotomy, reduction of left inguinal hernia, left inguinal hernia repair. Doing well, tolerating clears, advance to regular diet and HLIVF. Continue bowel regimen with Colace. D/C castro. Resume home Coumadin, check INR in AM. Social work consult and PT/OT consult for tomorrow. Given that he lives alone and does not have running water, will plan for discharge to SNF, and then to live with family while recovering. 6/3/19: POD#2. Doing well. Ready for discharge, just need to make sure he has a safe place to go after discharge as he lives alone without running water. He tells me his daughter has a room for him at [facility]. Will ask case management to check on this. He will then apparently live with his family in [place] after their house is ready for him. Will have PT/OT see him today. Continue coumadin, H2 shaila, etc. 10/07/18: POD#3 (incarcerated LIH repair), POD#1 (EGD with removal of impacted chicken from esophagus). Had a rough night due to confusion after anesthesia last evening. Now more clear this morning but he has concerns about ambulation and his stability with ambulation. Will ask PT/OT to see him again today and if he does OK with this then he could go to [facility] later today or tomorrow. Continue H2 shaila. Pt advised to cut his food into pieces no larger than his thumbnail and chew his food thoroughly prior to swallowing. (2) Paroxysmal atrial fibrillation Status: Acute Assessment & Plan: 10/05/18: In sinus rhythm. Resume home Coumadin. (3) Food impaction of esophagus Status: Resolved Assessment & Plan: EGD with removal of impacted chicken completed without problems. Condition Stable. Time Spent: < 30 min Exam Sepsis Risk: No Definite Risk Problem Qualifiers (1) Food impaction of esophagus: Encounter type: initial encounter Qualified Codes: T18.128A - Food in esophagus causing other injury, initial encounter MAGNO GIBSON MD Oct 07, 2018 08:19
--- NOTE | 2018-10-07 09:05 | NUR ---
Spoke to Mello at [facility] to inform them that patient is not being discharged is delayed until this possibly this afternoon.
--- NOTE | 2018-10-07 09:23 | NUR ---
Physical Therapy Impression Per nursing, requesting PT assess for safety with discharge to [facility] as Pt did go back to the OR yesterday evening (10/06) for an additional procedure. Pt agreeable and received from nursing sitting at the edge of the bed. Pt's daughter present for second half after PT re-evaluation. Pt noted to be unsteady while attempting to urinate standing and was unable to perform LB dressing without assistance from this PT for both threading and pulling up clothing. Pt verbalized he did not feel "ready" to be discharged to [facility] due to lack of independence with functional mobility and ADLs. In addition, Pt has new O2 needs and will require safety training for O2 tubing management. Recommend Pt be evaluated for short-term subacute rehab due to decreased safety and independence with functional mobility and ADLs. Physical Therapy Goals Patient's Goals
[2018-10-07] MEDS: ENOXAPARIN 40 MG/0.4ML SYR SC SCH (09:44)
[2018-10-07] MEDS: CARVEDILOL 6.25 MG TAB PO SCH ×2 (09:44→21:05)
[2018-10-07] MEDS: FAMOTIDINE 20 MG TAB PO SCH ×2 (09:44→21:05)
[2018-10-07] MEDS: DOCUSATE SODIUM 100 MG CAP PO SCH ×2 (09:44→21:00)
[2018-10-07] MEDS: PSYLLIUM 28% 1 PACKET PO SCH (09:44)
[2018-10-07] MEDS: PANTOPRAZOLE SOD 40 MG TABEC PO SCH ×2 (09:44→21:05)
--- NOTE | 2018-10-07 15:55 | NUR ---
Occupational Therapy Impression SBA supine to sit. CGA ambulation in hallway with RW. V/c's for safe and appropriate management of RW. Max A LB dressing. Mod A supine to sit. Pt declined further ADLs or needs at this time. SpO2 WNL on 3L. Pt may benefit from short-term rehab or [facility] with HH pending progression. Occupational Therapy Goals Patient's Goal
[2018-10-07] MEDS: WARFARIN SOD 5 MG TAB PO SCH (17:38)
[2018-10-08 03:45] VITALS: BP 112/57
[2018-10-08] MEDS: LEVOTHYROXINE SOD 0.137 MG TAB PO SCH (05:22)
[2018-10-08 07:34] VITALS: BP 128/59
--- NOTE | 2018-10-08 08:35 | General Surgery Progress Note ---
Subjective Progress Notes Subjective No complaints this morning. Physical Exam Vital Signs Date Time Temp Pulse Resp B/P (MAP) Pulse Ox O2 Delivery O2 Flow Rate FiO2 10/08/18 07:53 91 Nasal Cannula 2.5 10/08/18 07:34 99.0 52 24 128/59 (82) Intake and Output 10/08/18 07:00 Intake Total 1760 ml Balance 1760 ml Intake Oral 1760 ml # Voids 11 # Bowel Movements 3 General Appearance: Alert, Awake, No Acute Distress, Afebrile GI: Other (Soft, appropriate postop TTP, midline incision and left groin incision both look good without erythema or drainage.) Extremities: Warm, Perfused Result Diagram: 10/05/18 0512 10/06/18 0554 Monitor Interpretation: Normal Sinus Rhythm Assessment and Plan Problems: (1) Incarcerated left inguinal hernia Status: Resolved Assessment & Plan: 10/04/18: 88 year old male with history of CAD s/p CABG in 2008 with paroxysmal afib post op, chronically anticoagulated on Coumadin who presents with three day history of incarcerated left inguinal hernia. Clinical and radiographic findings are consistent with incarcerated sigmoid colon, likely bowel ischemia. He has a leukocytosis, overlying cutaneous erythema, and a lactic acidosis. I have explained that if resection of the sigmoid colon is indicated, that he will need a colostomy. We will repair the hernia primarily if there is bowel resection, we will use mesh if there is no incarceration. Due to his anticoagulation, will reverse with 2U FFP and Vitamin K 10mg IV x 1. Will start zosyn. I have recommended diagnostic laparoscopy, possible bowel resection, possible ostomy, repair of L inguinal hernia with possible mesh. Informed consent obtained. Will recheck INR after FFP infusion, and proceed to surgery once INR<2. 10/05/18: POD#1 s/p exploratory laparotomy, reduction of left inguinal hernia, left inguinal hernia repair. Doing well, tolerating clears, advance to regular diet and HLIVF. Continue bowel regimen with Colace. D/C castro. Resume home Coumadin, check INR in AM. Social work consult and PT/OT consult for tomorrow. Given that he lives alone and does not have running water, will plan for discharge to SNF, and then to live with family while recovering. 10/06/18: POD#2. Doing well. Ready for discharge, just need to make sure he has a safe place to go after discharge as he lives alone without running water. He tells me his daughter has a room for him at [facility]. Will ask case management to check on this. He will then apparently live with his family in [place] after their house is ready for him. Will have PT/OT see him today. Continue coumadin, H2 shaila, etc. 10/07/18: POD#3 (incarcerated LIH repair), POD#1 (EGD with removal of impacted chicken from esophagus). Had a rough night due to confusion after anesthesia last evening. Now more clear this morning but he has concerns about ambulation and his stability with ambulation. Will ask PT/OT to see him again today and if he does OK with this then he could go to [facility] later today or tomorrow. Continue H2 shaila. Pt advised to cut his food into pieces no larger than his thumbnail and chew his food thoroughly prior to swallowing. 10/08/18: POD#4, POD#2. Doing well. Tolerating diet. D/C either to ECF or [facility] in the next day or two when PT/OT deem appropriate from activity, mobility, ADL standpoint. (2) Paroxysmal atrial fibrillation Status: Chronic Assessment & Plan: 10/05/18: In sinus rhythm. Resume home Coumadin. (3) Food impaction of esophagus Status: Resolved Assessment & Plan: EGD with removal of impacted chicken completed without problems. Condition Stable. Time Spent: < 30 min Exam Sepsis Risk: No Definite Risk Problem Qualifiers (1) Food impaction of esophagus: Encounter type: initial encounter Qualified Codes: T18.128A - Food in esophagus causing other injury, initial encounter MAGNO GIBSON MD Oct 08, 2018 08:35
[2018-10-08] MEDS: DOCUSATE SODIUM 100 MG CAP PO SCH ×2 (09:10→20:53)
[2018-10-08] MEDS: PANTOPRAZOLE SOD 40 MG TABEC PO SCH ×2 (09:10→20:53)
[2018-10-08] MEDS: PSYLLIUM 28% 1 PACKET PO SCH (09:10)
[2018-10-08] MEDS: ENOXAPARIN 40 MG/0.4ML SYR SC SCH (09:10)
[2018-10-08] MEDS: CARVEDILOL 6.25 MG TAB PO SCH ×2 (09:10→20:53)
[2018-10-08] MEDS: FAMOTIDINE 20 MG TAB PO SCH ×2 (09:10→20:53)
--- NOTE | 2018-10-08 10:50 | NUR ---
ECF Referral - met with resident and explained rehab philosophy. Unsure if he will have a skilled rehab need, awaiting PT/OT evaluation today. He will not have an inpatient qualifying stay until 10/09.
[2018-10-08 11:14] VITALS: BP 92/60
--- NOTE | 2018-10-08 11:32 | NUR ---
Physical Therapy Impression Pt instructed in and returned demonstration of appropriate O2 management techniques. Ambulated on 2 L O2 with SO2 in low 80s, ambulated on 3 L O2 with SO2 at 95%. Pt ambulated 150' with RW and SBA without loss of balance. Pt able to perform bed mobility with SBA, multiple sit<>stand transfers without assistance or an assistive device without a loss of balance. Contacted [facility] to verify Pt will have access to staff for assistance if needed. Physical Therapy Goals Patient's Goals
--- NOTE | 2018-10-08 12:40 | NUR ---
Occupational Therapy Impression SBA ambulation with RW in room. Pt reports he prefers ambulating with RW. Independent donning/doffing socks. Independent grooming/oral care sink front. Pt reports feeling much improved this date. Discussed with pt current level of function and discharge setting. Pt reports desire to discharge to [facility]. Pt demonstrates improved (I) and endurance this date. Appropriate for discharge to [facility] with services if pt and family agreeable. Occupational Therapy Goals Patient's Goal
[2018-10-08 14:32] VITALS: BP 100/64
--- NOTE | 2018-10-08 14:49 | NUR ---
ECF Referral - High level skilled need for short term. PASRR negative, qualifying stay will be met on 10/09/18.
[2018-10-08] MEDS: WARFARIN SOD 5 MG TAB PO SCH (16:33)
[2018-10-08 19:15] VITALS: BP 118/60
[2018-10-08 22:58] VITALS: BP 122/73
[2018-10-09 03:34] VITALS: BP 128/63
[2018-10-09] MEDS: LEVOTHYROXINE SOD 0.137 MG TAB PO SCH (05:55)
[2018-10-09 07:35] VITALS: BP 129/60
[2018-10-09] MEDS: CARVEDILOL 6.25 MG TAB PO SCH (08:29)
[2018-10-09] MEDS: ENOXAPARIN 40 MG/0.4ML SYR SC SCH (08:29)
[2018-10-09] MEDS: PSYLLIUM 28% 1 PACKET PO SCH (08:29)
[2018-10-09] MEDS: FAMOTIDINE 20 MG TAB PO SCH (08:29)
[2018-10-09] MEDS: PANTOPRAZOLE SOD 40 MG TABEC PO SCH (08:29)
[2018-10-09] MEDS: DOCUSATE SODIUM 100 MG CAP PO SCH (08:29)
--- NOTE | 2018-10-09 10:23 | General Surgery Progress Note ---
Subjective Progress Notes Subjective no acute events. pain controlled. Physical Exam Vital Signs Date Time Temp Pulse Resp B/P (MAP) Pulse Ox O2 Delivery O2 Flow Rate FiO2 10/09/18 09:08 93 Nasal Cannula 3.0 10/09/18 07:35 98.7 62 20 129/60 (83) Intake and Output 10/09/18 07:00 Intake Total 1220 ml Balance 1220 ml Intake Oral 1220 ml # Voids 13 # Bowel Movements 1 General Appearance: No Acute Distress GI: Other (abd soft, inc c/d/i) Result Diagram: 10/05/18 0512 10/06/18 0554 Monitor Interpretation: Normal Sinus Rhythm Assessment and Plan Problems: (1) Incarcerated left inguinal hernia Status: Resolved Assessment & Plan: 10/04/18: 88 year old male with history of CAD s/p CABG in 2008 with paroxysmal afib post op, chronically anticoagulated on Coumadin who presents with three day history of incarcerated left inguinal hernia. Clinical and radiographic findings are consistent with incarcerated sigmoid colon, likely bowel ischemia. He has a leukocytosis, overlying cutaneous erythema, and a la ctic acidosis. I have explained that if resection of the sigmoid colon is indicated, that he will need a colostomy. We will repair the hernia primarily if there is bowel resection, we will use mesh if there is no incarceration. Due to his anticoagulation, will reverse with 2U FFP and Vitamin K 10mg IV x 1. Will start zosyn. I have recommended diagnostic laparoscopy, possible bowel resection, possible ostomy, repair of L inguinal hernia with possible mesh. Informed consent obtained. Will recheck INR after FFP infusion, and proceed to surgery once INR<2. 10/05/18: POD#1 s/p exploratory laparotomy, reduction of left inguinal hernia, left inguinal hernia repair. Doing well, tolerating clears, advance to regular diet and HLIVF. Continue bowel regimen with Colace. D/C castro. Resume home Coumadin, check INR in AM. Social work consult and PT/OT consult for tomorrow. Given that he lives alone and does not have running water, will plan for discharge to SNF, and then to live with family while recovering. 10/06/18: POD#2. Doing well. Ready for discharge, just need to make sure he has a safe place to go after discharge as he lives alone without running water. He tells me his daughter has a room for him at [facility]. Will ask case management to check on this. He will then apparently live with his family in [place] after their house is ready for him. Will have PT/OT see him today. Continue coumadin, H2 shaila, etc. 10/07/18: POD#3 (incarcerated LIH repair), POD#1 (EGD with removal of impacted chicken from esophagus). Had a rough night due to confusion after anesthesia last evening. Now more clear this morning but he has concerns about ambulation and his stability with ambulation. Will ask PT/OT to see him again today and if he does OK with this then he could go to [facility] later today or tomorrow. Continue H2 shaila. Pt advised to cut his food into pieces no larger than his thumbnail and chew his food thoroughly prior to swallowing. 10/08/18: POD#4, POD#2. Doing well. Tolerating diet. D/C either to ECF or [facility] in the next day or two when PT/OT deem appropriate from activity, mobility, ADL standpoint. 10/09/18: doing well. to ecf today. (2) Paroxysmal atrial fibrillation Status: Chronic Assessment & Plan: 10/05/18: In sinus rhythm. Resume home Coumadin. (3) Food impaction of esophagus Status: Resolved Assessment & Plan: EGD with removal of impacted chicken completed without problems. Exam Sepsis Risk: No Definite Risk Problem Qualifiers (1) Food impaction of esophagus: Encounter type: initial encounter Qualified Codes: T18.128A - Food in esophagus causing other injury, initial encounter SHERIE LEA Oct 09, 2018 10:23
[2018-10-09 11:12] VITALS: BP 130/58
== END 2018-10-09 13:47 | DRG 357 ==
LOC: ER 08:29 → OR 10:03 → CMPBEDREQ 15:17 → MED 19:50 → UNDOADMIN 19:50 → MED 10-06
PROVIDERS: ADMIT Surgery; ATTEND Surgery
PROC: 30233K1 Transfusion of Nonautologous Frozen Plasma into Peripheral Vein, Percutaneous Approach (ICD-10-PCS; 2018-10-04)
PROC: 0DQV0ZZ Repair Mesentery, Open Approach (ICD-10-PCS; principal; 2018-10-04 15:32)
PROC: 0DC38ZZ Extirpation of Matter from Lower Esophagus, Via Natural or Artificial Opening Endoscopic (ICD-10-PCS; 2018-10-06)
DX: K44.0 Diaphragmatic hernia with obstruction, without gangrene (principal); E87.2 Acidosis; K44.9 Diaphragmatic hernia without obstruction or gangrene; I48.0 Paroxysmal atrial fibrillation; I25.10 Atherosclerotic heart disease of native coronary artery without angina pectoris; I11.0 Hypertensive heart disease with heart failure; I50.9 Heart failure, unspecified; K21.9 Gastro-esophageal reflux disease without esophagitis; F32.9 Major depressive disorder, single episode, unspecified; T18.128A Food in esophagus causing other injury, initial encounter; T41.45XA Adverse effect of unspecified anesthetic, initial encounter; Y92.230 Patient room in hospital as the place of occurrence of the external cause; Z95.1 Presence of aortocoronary bypass graft; Z79.01 Long term (current) use of anticoagulants; Z59.8 Other problems related to housing and economic circumstances
CPT/HCPCS: 36415; 71045; 74177; 82040; 82247; 82310; 82374; 82435; 82565; 82947; 83605; 83735; 84075; 84132; 84155; 84295; 84450; 84460; 84520; 85025; 85610; 85730; 86850; 86900; 86901; 93005; 93306; 94640; 96361; 96365; 96368; 97161; 97165; 99285; J0131; J1100; J1170; J1650; J1940; J2001; J2250; J2370; J2405; J2543; J2704; J2795; J3010; J3430; J7040; J7050; J7120; P9059; Q9967

== ENCOUNTER 2018-10-09 13:47 | Inpatient (IN) | payer MEDICARE, OTHER ==
[2015-04-10 13:18] VITALS: Ht 182.9 cm; Wt 76.2 kg
[~2018-10-09] VITALS: Ht 182.9 cm; Wt 76.2 kg
[2018-10-09 14:00] VITALS: BP 120/64
[2018-10-09] MEDS ORDERED: POLYETHYLENE GLYCOL 17 GM PKT PO PRN (15:05)
[2018-10-09] MEDS ORDERED: oxyCODONE HCL 5 MG CAP PO PRN (15:05)
[2018-10-09] MEDS ORDERED: NALOXONE HCL 0.4 MG/ML VIAL IVP PRN (15:05)
[2018-10-09] MEDS ORDERED: ALBUTEROL/IPRATROPIUM 3 ML NEB NEB PRN (15:05)
[2018-10-09] MEDS ORDERED: MAGNESIUM HYDROXIDE* 30ML UDCP PO PRN (15:05)
[2018-10-09] MEDS ORDERED: ONDANSETRON 4 MG/2 ML VIAL IVP PRN (15:05)
[2018-10-09] MEDS ORDERED: HYDROmorphone HCL 2 MG/ML SDV IVP PRN (15:05)
--- NOTE | 2018-10-09 15:51 | Consultant Pharmacy Review ---
Truck Mechanic Review Medication Review Do All Mecications have a Diag: Yes Beers Criteria Medication 2014 Proton Pump Inhibitors: Pantoprazole (GERD per history) Disease-Drug Interactions History of Falls/Fractures: Opioids Pneumococcal Vaccine HX Pneumo Vac ([id number]): Yes (2014) HX Pneumo Vac (Pneumovax): Yes Comments Regarding the Review Patient appears to be up to date on Pneumococcal vaccinations. Please monitor for falls/respiratory depression due to orders for Dilaudid and Oxy IR. Please re-evaluate necessity of these medications weekly. GENE YANES Oct 09, 2018 15:51
[2018-10-09] MEDS: WARFARIN SOD 5 MG TAB PO SCH (17:08)
[2018-10-09] MEDS: FAMOTIDINE 20 MG TAB PO SCH (20:25)
[2018-10-09] MEDS: CARVEDILOL 6.25 MG TAB PO SCH (20:25)
[2018-10-09] MEDS: PANTOPRAZOLE SOD 40 MG TABEC PO SCH (20:25)
[2018-10-09] MEDS: DOCUSATE SODIUM 100 MG CAP PO SCH (20:42)
[2018-10-09] MEDS: ACETAMINOPHEN 325 MG TAB PO PRN (22:06)
[2018-10-10] MEDS: LEVOTHYROXINE SOD 0.137 MG TAB PO SCH (05:50)
[2018-10-10] MEDS: ACETAMINOPHEN 325 MG TAB PO PRN ×2 (05:50→20:59)
[2018-10-10 07:13] VITALS: BP 115/60
[2018-10-10] MEDS: PSYLLIUM 28% 1 PACKET PO SCH (09:00)
[2018-10-10] MEDS: PANTOPRAZOLE SOD 40 MG TABEC PO SCH ×2 (09:29→20:59)
[2018-10-10] MEDS: FAMOTIDINE 20 MG TAB PO SCH ×2 (09:29→20:59)
[2018-10-10] MEDS: DOCUSATE SODIUM 100 MG CAP PO SCH ×2 (09:29→20:59)
[2018-10-10] MEDS: CARVEDILOL 6.25 MG TAB PO SCH ×2 (09:29→20:59)
[2018-10-10] MEDS: ENOXAPARIN 40 MG/0.4ML SYR SC SCH (09:30)
--- NOTE | 2018-10-10 10:22 | NUR ---
Occupational Therapy Impression CGA ambulation x90ft with RW. V/c's for safe management of RW. CGA toileting. CGA grooming standing sink front. Set-up UB dressing. CGA LB dressing with Min A to don left shoe secondary to increased edema. Pt progressing well towards goals. Continue POC. Occupational Therapy Goals 1) Pt will be Mod (I) UB/LB dressing. 2) Pt will be Mod (I) toilet task. 3) Pt will be Independent grooming/hygiene. 4) Pt will be Mod (I) shower task. 5) Pt Perez Index of ADLs score will improve by 2 points. 6) Pt will be Independent UB HEP. Patient's Goal
--- NOTE | 2018-10-10 10:32 | OT ECF NOTE ---
Type of Note: Initial Note Primary Medical Diagnosis: Generalized weakness s/p left inguinal hernia repair. Occupational Therapy Evaluation Date: 10/10/18 SUBJECTIVE: Prior Hospitalization: H 10/04/18 thru 10/09/18. DOS: 10/04/[address] Burch. Hospital admission complicated by EGD with removal of impacted chicken from esophagus. Prior Level of Function: Independent with all ADLs/IADLs. Pt hauls water into home from well with buckets (currently, no running water in home). Ambulating with no assistive device prior. Prior Living Status: Single level house (3 steps to enter), Alone Community Services: No known needs Home Accessibility: All needs on one level Walk-in shower Tub/shower combination Equipment Owned: Front wheeled walker Cane Wheelchair Medical Complications/Past Medical History: Please refer to EMR Psychosocial Support: Supportive family locally and in [place] Pain Scale (0-10): Pt reports discomfort at incision line, no reported pain OBJECTIVE: Strength: MMT: Right Left Shoulder Flexion WFL WFL Elbow Flexion WFL WFL Wrist Extension WFL WFL Stock Mixer WFL WFL (5= normal, 4= good, 3= fair, 2= poor, 1= trace) ROM: Both upper extremities, WFL Sensation: No paraesthesia reported Functional Transfer: Assistive Device: Front wheeled walker, Gait belt Transfer Ability: Verbal cues, CGA ADL: Upper body dressing: Assistive device: None Upper body dressing ability: CGA Lower body dressing: Assistive device: None Lower body dressing ability: Minimum assistance Toileting: Assistive device: Grab bars Toileting ability: CGA Grooming/hygiene: Assistive device: None Grooming ability: CGA Bathing: Assistive device: Bathing ability: N/T Standardized Assessment: Perez Index of Activities of Daily Livin/20 upon discharge (10/10/18). ASSESSMENT: "Sean" presents to [facility] with decreased activity tolerance and generalized weakness s/p recent left inguinal hernia repair. Currently, he requires CGA and cues for safety with ADLs/IADLs. He will benefit from skilled OT service to improve endurance and optimize independence for ADLs/IADLs. Problem List/Current Limitations: Decreased activity tolerance Generalized weakness Poor safety awareness Short Term Goals: 1) Pt will be Mod (I) UB/LB dressing. 2) Pt will be Mod (I) toilet task. 3) Pt will be Independent grooming/hygiene. 4) Pt will be Mod (I) shower task. 5) Pt Perez Index of ADLs score will improve by 2 points. 6) Pt will be Independent UB HEP. Programming Director Goals: Discharge to least restrictive environment Patient Goals: Patient reports plans to discharge home. Family had arranged transition to [facility]. Rehabilitation Prognosis: Good Barriers to Discharge: Discharge plan PLAN: The patient will benefit from skilled occupational therapy services 5 times per week for 2 weeks including: Ther ex ADL training Safety training Ther act IADL training Home assessment Transfer training Adaptive equip training Bed mobility Energy conservation Thank you for this referral. If you have any questions, concerns, or comments about this report or plan, please contact me at . Oksana Collado MS, OTR/L Occupational Therapist KATHY
--- NOTE | 2018-10-10 10:43 | PT ECF NOTE ---
Type of Note: Initial Note Primary Medical Diagnosis: Hernia Repair Physical Therapy Evaluation Date: 10/09/2018 SUBJECTIVE: Prior Hospitalization: [facility] for Hernia Repair Prior Level of Function: Pt previously living alone, independent with ADLs/IADLs, and ambulatory without AD Prior Living Status: Multi-level home. Alone Community Services: No known needs Home Accessibility: Pt reports approximately 3 stairs to enter home. Pt may discharge to [facility], where he will not have stairs to enter. Equipment Owned: Front wheeled walker, Cane, Wheelchair Medical Complications/Past Medical History: Please see EMR. [facility] which required an additional procedure. Psychosocial Support: Supportive children Pain Scale (0-10): Reports mild pain in abdomen, due to incision. OBJECTIVE: Bed Mobility: Not assessed Assistive device: Transfers: 1-person assist, CGA Assistive Device: Front wheeled walker Gait: 1-person assist, CGA, x300 feet Assistive device: Front wheeled walker Stairs: Not assessed Assistive device: Timed Up and Go (>12 seconds indicated increased risk for falls): 27 seconds with use of RW ASSESSMENT: Pt currently not functioning at previous baseline levels. Previously did not require use of AD or supplemental O2 during day. Pt demonstrates impulsive behavior and with current deficits this behavior can be unsafe. Pt would benefit from further skilled PT care to restore balance, strength, and endurance to previous levels to ensure safety at home. Problem List/Current Limitations: Pain, Decreased activity lorrie, Decreased strength, Decreased balance, Generalized weakness Short Term Goals: 1. Manisha bed mobility 2. Manisha transfers 3. Manisha ambulation with least restrictive device for 500 ft. 4. Ascend/Descend 4 stairs with Manisha 5. Decrease Timed Up and Go time to <25 seconds, to indicate improved mobility. [facility]ci Goals: Discharge to least restrictive and safe environment Patient Goals: Return home Rehabilitation Prognosis: Good Barriers for Discharge: Pt does not currently have running water. As a result, family wishes to discharge to assisted living then transition to living with family, before returning home. PLAN: The patient will benefit from skilled physical therapy services 5 times per week for 2 weeks including: Therapeutic Exercise Therapeutic Activities Transfer Training Gait Training Stair Training ADL's Safety Training Neuromuscular Re-educ. Bed Mobility Thank you for this referral. If you have any questions, concerns, or comments about this report or plan, please contact me at . Steve Das, SPT Lorelei Fowler, PT, DPT, GCS MTDD
--- NOTE | 2018-10-10 10:46 | NUR ---
Physical Therapy Impression Pt had impulsive behavior during treatment. He was found walking in room without O2 or the walker and also would stand before PT staff was ready. He also demonstrated unsteady balance. Pt ambulated 300 ft w/ CGAx1, RW, and O2. O2 was initally on 1L for ambulation, half way SpO2 was measured at 82% and O2 was increased to 2L. Pt was unsteady during gait. Cues were given on walking closer to the walker and standing up straighter. Pt required CGAx1 for sit<>stand xfers.Therex performed standing within walker: marching, heel rises, and knee flexion. Therex performed sitting in reclining chair: Long arc quads, hip abduction/adduction. Pt had good tolerance to therex and was challanged by balance requirements in standing exercies. Pt would benefit from further skilled PT care to improve balance/strength to levels safe for functional ambulation. Physical Therapy Goals 1. Manisha bed mobility 2. Manisha transfers 3. Manisha ambulation with least restrictive device for 500 ft. 4. Ascend/Descend 4 stairs with Manisha 5. Decrease Timed Up and Go time to <25 seconds, to indicate improved mobility. Patient's Goals
--- NOTE | 2018-10-10 10:46 | NUR ---
This Physical Therapist or Dental Ceramist Helper was present for the entire physical therapy session directing the services, making the skilled judgement, and was not engaged in treating another patient or doing another task at the same time as the treatment session dated 10/09/18. Addendum: 10/10/18 at 1046 by SD TAYLOR PT Amended: Links added.
--- NOTE | 2018-10-10 10:57 | Medical Nutrition Therapy ---
Nutrition Anthropometrics Height (Inches): 69 Weight (Pounds): 176 BMI: 26 Hx Weight Loss: Yes (Pt reports minimal wt loss of 4 lbs x 1 year.) Mayco Nutrition Score: Probably Inadequate Mayco Nutrition Risk Score: 15 Dietary Referral Nutrition Risk Factors: Diff. Swallowing Nutrition Risk Comment: Physical Findings Physical Appearance: Within normal healthy BMI range Skin Appearance Skin Appearance: Edema Edema Location Modifier: Edema Location: Type of Edema: Degree of Edema: Gastrointestinal Symptoms GI Symtoms: Tube Present: Bowel Sounds: Recent Bowel Pattern: Stool Characteristics: Nutrition/Food History Increased Appetite, Difficulty Swallowing (Last visit pt had food impaction of the esophagus) Good Breakfast: oatmeal or cream of wheat, toast Nutritional Diagnosis Nutritional Risk Acuity 3: Weight Loss (Minimal wt loss only 4 lbs over 1 year) Nutritional Risk Acuity 4: Good Appetite Past Medical History: CAD, Hypercholesterolemia, Hypothyroid Nutritional Acuity: 3-Mild Energy Requirement: 1899 (MSJ x 1.3) Protein Requirement: 80 (1g/k) Fluid Requirement: 1899 (1mL/kcal) Diet Type: Diet as Tolerated ALVIN/REG Nutrition Intervention: Encourage intake Diet Comment To RSA: Pt likes oatmeal instead of cream of wheat. Encourage protein at every meal. Nutrition Monitoring & Eval Nutrition Goals: Eat 90-100% Meal Nutrition Follow-Up: Good Intake RD Patient Assessment Time: [address] Assessment Type: RD Assessment Patient Nutrition Acuity: 3-Mild Follow Up Date: Oct 14, 2018 Nutritional Comment: 10/10/18-Reviewed pt medical hx. Was admitted to med/surg for L inguinal hernia. Pt reports good appetite. Encouraged him to order more protein at every meal for healing of hernia and to meet rehab needs in ECF. Will continue to monitor intake, appetite, and weight. GANESH OTERO Oct 10, 2018 10:57
--- NOTE | 2018-10-10 12:15 | NUR ---
This Physical Therapist or Paraffin Machine Operator was present for the entire physical therapy session directing the services, making the skilled judgement, and was not engaged in treating another patient or doing another task at the same time as the treatment session. Addendum: 10/10/18 at 1215 by SD TAYLOR PT Amended: Links added.
[2018-10-10] MEDS ORDERED: ONDANSETRON 4 MG ODT TABDP SL PRN (12:45)
[2018-10-10 13:56] LABS: INR 2.4
[2018-10-10] MEDS: WARFARIN SOD 5 MG TAB PO SCH (17:28)
[2018-10-10 20:50] VITALS: BP 132/71
[2018-10-11] MEDS: LEVOTHYROXINE SOD 0.137 MG TAB PO SCH (06:12)
[2018-10-11 07:23] VITALS: BP 149/75
[2018-10-11] MEDS: PANTOPRAZOLE SOD 40 MG TABEC PO SCH ×2 (08:43→20:58)
[2018-10-11] MEDS: DOCUSATE SODIUM 100 MG CAP PO SCH ×2 (08:43→20:58)
[2018-10-11] MEDS: FAMOTIDINE 20 MG TAB PO SCH ×2 (08:43→20:58)
[2018-10-11] MEDS: CARVEDILOL 6.25 MG TAB PO SCH ×2 (08:43→20:59)
[2018-10-11] MEDS: ENOXAPARIN 40 MG/0.4ML SYR SC SCH (08:43)
[2018-10-11] MEDS: PSYLLIUM 28% 1 PACKET PO SCH (08:43)
[2018-10-11] MEDS: ACETAMINOPHEN 325 MG TAB PO PRN ×2 (13:55→20:58)
[2018-10-11 15:47] VITALS: BP 114/63
[2018-10-11] MEDS: WARFARIN SOD 5 MG TAB PO SCH (17:22)
[2018-10-12] MEDS: LEVOTHYROXINE SOD 0.137 MG TAB PO SCH (05:49)
[2018-10-12 07:32] VITALS: BP 134/68
[2018-10-12] MEDS: ENOXAPARIN 40 MG/0.4ML SYR SC SCH (09:03)
[2018-10-12] MEDS: DOCUSATE SODIUM 100 MG CAP PO SCH ×2 (09:03→20:48)
[2018-10-12] MEDS: FAMOTIDINE 20 MG TAB PO SCH ×2 (09:04→20:48)
[2018-10-12] MEDS: PANTOPRAZOLE SOD 40 MG TABEC PO SCH ×2 (09:04→20:48)
[2018-10-12] MEDS: PSYLLIUM 28% 1 PACKET PO SCH (09:04)
[2018-10-12] MEDS: CARVEDILOL 6.25 MG TAB PO SCH ×2 (09:04→20:48)
[2018-10-12 15:02] VITALS: BP 123/71
[2018-10-12] MEDS: ACETAMINOPHEN 325 MG TAB PO PRN (16:14)
[2018-10-12] MEDS: WARFARIN SOD 5 MG TAB PO SCH (16:17)
[2018-10-13] MEDS: LEVOTHYROXINE SOD 0.137 MG TAB PO SCH (05:45)
[2018-10-13 06:16] LABS: INR 3.21
[2018-10-13 07:30] VITALS: BP 128/70
[2018-10-13] MEDS: PSYLLIUM 28% 1 PACKET PO SCH (08:35)
[2018-10-13] MEDS: DOCUSATE SODIUM 100 MG CAP PO SCH ×2 (08:35→21:26)
[2018-10-13] MEDS: PANTOPRAZOLE SOD 40 MG TABEC PO SCH ×2 (08:35→21:26)
[2018-10-13] MEDS: FAMOTIDINE 20 MG TAB PO SCH ×2 (08:35→21:26)
[2018-10-13] MEDS: CARVEDILOL 6.25 MG TAB PO SCH ×2 (08:35→21:26)
--- NOTE | 2018-10-13 10:40 | NUR ---
Occupational Therapy Impression CGA ambulation with RW. V/c's for safe management of RW. CGA ambulation in room without RW. Pt with decreased balance, utilizing furniture for support. Set-up bathing seated/standing. Independent UB dressing. Min A threading LB clothing. SBA pulling clothing over hips. Pt requesting assist from OT for clothing, requires encouragement to complete (I)ly. SBA oral care sink front. Continue POC. Occupational Therapy Goals 1) Pt will be Mod (I) UB/LB dressing. 2) Pt will be Mod (I) toilet task. 3) Pt will be Independent grooming/hygiene. 4) Pt will be Mod (I) shower task. 5) Pt Perez Index of ADLs score will improve by 2 points. 6) Pt will be Independent UB HEP. Patient's Goal
[2018-10-13] MEDS: TAMSULOSIN HCL 0.4 MG CAP PO SCH (11:12)
--- NOTE | 2018-10-13 12:00 | Medical Nutrition Therapy ---
Nutrition Anthropometrics Height (Inches): 72.00 Height (Calculated Centimeters: 182.522045 Weight (Pounds): 169 Weight (Calculated Kilograms): 76.657 BMI: 26 Hx Weight Loss: Yes (Pt reports minimal wt loss of 4 lbs x 1 year.) Mayco Nutrition Score: Probably Inadequate Mayco Nutrition Risk Score: 15 Dietary Referral Nutrition Risk Factors: Diff. Swallowing Nutrition Risk Comment: Physical Findings Physical Appearance: Within normal healthy BMI range Skin Appearance Skin Appearance: Edema Edema Location Modifier: Left Edema Location: Leg Type of Edema: Degree of Edema: Gastrointestinal Symptoms GI Symtoms: Tube Present: Bowel Sounds: Recent Bowel Pattern: Stool Characteristics: Nutritional Diagnosis Nutritional Risk Acuity 3: Weight Loss (Minimal wt loss only 4 lbs over 1 year) Nutritional Risk Acuity 4: Good Appetite Past Medical History: CAD, Hypercholesterolemia, Hypothyroid Nutritional Acuity: 3-Mild Energy Requirement: 1899 (MSJ x 1.3) Protein Requirement: 80 (1g/k) Fluid Requirement: 1899 (1mL/kcal) Diet Type: Diet as Tolerated ALVIN/REG Nutrition Intervention: Encourage intake Diet Comment To RSA: Pt likes oatmeal instead of cream of wheat. Encourage protein at every meal. Nutrition Monitoring & Eval Nutrition Goals: Eat 75-100% Meal, Drink > 1500 cc/day Nutrition Follow-Up: Good Intake RD Patient Assessment Time: [address] Assessment Type: RD Re-Assessment Patient Nutrition Acuity: 3-Mild Follow Up Date: Oct 21, 2018 Nutritional Comment: 10/10/18-Reviewed pt medical hx. Was admitted to med/surg for L inguinal hernia. Pt reports good appetite. Encouraged him to order more protein at every meal for healing of hernia and to meet rehab needs in ECF. Will continue to monitor intake, appetite, and weight. TAVARES 10/13 Pt cont on ALVIN, intake average 80%. No new wt. Warfarin d/vianney. Will cont to monitor and encourage intake. SHARITA KEARNEY Oct 13, 2018 12:00
--- NOTE | 2018-10-13 12:57 | NUR ---
Physical Therapy Impression Pt demonstrated improved stability and endurance during gait and stair training. Pt did not require any supplemental O2 during session and remained >90%. Pt ambulated 350 ft w/ SBA and use of RW. Pt appeared more steady during ambulation and did not require any breaks. When asked, Pt reported some L ankle pain but did not seem to signifcantly limit. Pt ascended/descded 2 sets of 4 stairs w/ CGA and use of railings. Verbal cues provided for a step to pattern on descending, which improved stability. SBA provided during sit<>stand xfers. Standing therex performed while holding walker: marching, heel rises, hip abd, hamstring curls and sit<>stand. Therex performed sitting in reclining chair: ankle pumps, FAQ, and hip abd/add. Pt reported some pain in L ankle during ankle pumps. Pt was left sitting in reclining chair with all needs met and SpO2>90%. Physical Therapy Goals 1. Manisha bed mobility 2. Manisha transfers 3. Manisha ambulation with least restrictive device for 500 ft. 4. Ascend/Descend 4 stairs with Manisha 5. Decrease Timed Up and Go time to <25 seconds, to indicate improved mobility. Patient's Goals Addendum: 10/13/18 at 1257 by SD TAYLOR PT Amended: Links added.
--- NOTE | 2018-10-13 14:51 | General Surgery Progress Note ---
Subjective Progress Notes Subjective Patient reports pain is mostly in feet. Having frequent urination. BUS demonstrates urinary retention of about 300 mL post-void. Eating and drinking without issue. Patient Complains of: Genitourinary: Other (Frequent urination) Musculoskeletal: Pain Physical Exam Vital Signs Date Time Temp Pulse Resp B/P (MAP) Pulse Ox O2 Delivery O2 Flow Rate FiO2 10/13/18 07:30 94 Nasal Cannula 0.5 10/13/18 07:30 97.5 70 18 128/70 (89) Intake and Output 10/13/18 07:00 Intake Total 1185 ml Output Total 1141 ml Balance 44 ml Intake Oral 1185 ml Output Urine Total 1141 ml # Voids 8 General Appearance: Alert, Awake, No Acute Distress Eyes: PERRLA ENT: Moist Mucous Membranes, Nasal Mucosa Clear, Oropharynx Clear Cardiovascular: Normal Rhythm & Peripheral Pulses, Regular Rate and Rhythm Respiratory: No Respiratory Distress GI: Soft and Non-Tender : Normal Musculoskeletal: No Weakness/Pain Extremities: Soft and Non Tender, Warm, Perfused Integumentary: Other (Lower midline abdominal incision and left inguinal incision with Dermabond in tact. No surrounding erythema, edema. Healing ridges palpable deep to incisions. ) Psych: Alert & Oriented X3 Assessment and Plan Problems: (1) Food impaction of esophagus Status: Acute Assessment & Plan: Food impaction - cleared endoscopically - no further dysphagia - continue diet as tolerated (2) Urinary retention Status: Chronic Assessment & Plan: Chronic urinary retention - complaints of urinary frequency - UA without evidence of infection - no indication for [place] placement - start tamsulosin (3) Incarcerated left inguinal hernia Status: Resolved Assessment & Plan: Incarcerated left inguinal hernia - s/p left inguinal and abdominal approaches - wound appear to be healing well - continue PRN pain control - diet as tolerated - mobilize as tolerated (4) Paroxysmal atrial fibrillation Status: Chronic Assessment & Plan: Paroxysmal atrial fibrillation - continue beta shaila for rate control - chronically anticoagulated with warfarin - INR supratherapeutic this AM, hold PM warfarin dose and recheck in AM - DC Lovenox Problem Qualifiers (1) Food impaction of esophagus: Encounter type: subsequent encounter Qualified Codes: T18.128D - Food in esophagus causing other injury, subsequent encounter JOY FOWLER MD Oct 13, 2018 13:23
[2018-10-13 16:30] VITALS: BP 123/65
[2018-10-14] MEDS: ACETAMINOPHEN 325 MG TAB PO PRN ×2 (02:51→21:05)
[2018-10-14] MEDS: LEVOTHYROXINE SOD 0.137 MG TAB PO SCH (05:40)
[2018-10-14 06:30] LABS: INR 2.58
[2018-10-14 07:18] VITALS: BP 130/71
[2018-10-14] MEDS: TAMSULOSIN HCL 0.4 MG CAP PO SCH (08:39)
[2018-10-14] MEDS: PANTOPRAZOLE SOD 40 MG TABEC PO SCH ×2 (08:39→21:05)
[2018-10-14] MEDS: PSYLLIUM 28% 1 PACKET PO SCH (08:39)
[2018-10-14] MEDS: CARVEDILOL 6.25 MG TAB PO SCH ×2 (08:39→21:05)
[2018-10-14] MEDS: FAMOTIDINE 20 MG TAB PO SCH ×2 (08:39→21:05)
[2018-10-14] MEDS: DOCUSATE SODIUM 100 MG CAP PO SCH ×2 (08:39→21:05)
--- NOTE | 2018-10-14 08:51 | NUR ---
Occupational Therapy Impression Mod (I) ambulation with RW. Pt occasionally demonstrates poor RW management (leaving walker behind) but has no loss of balance. Able to (I)ly don/doff LB clothing, requires increased time. Mod (I) toileting. Independent grooming sinkfront. Pt is nearing OT goals. Pt reports desire to discharge to [facility] as that is his "avenue home." Will discuss at care conference this afternoon. Occupational Therapy Goals 1) Pt will be Mod (I) UB/LB dressing. 2) Pt will be Mod (I) toilet task. 3) Pt will be Independent grooming/hygiene. 4) Pt will be Mod (I) shower task. 5) Pt Perez Index of ADLs score will improve by 2 points. 6) Pt will be Independent UB HEP. Patient's Goal
--- NOTE | 2018-10-14 09:48 | NUR ---
Pt toileting himself It appears that patient has been taking himself to the toilet, as I have found his urinal in the bathroom with urine in it twice already this morning, and the other staff deny taking him to the toilet.
--- NOTE | 2018-10-14 10:40 | NUR ---
5-day MDS completed with pt. C: 13, D: 01, E: no concerns, Q: plans to DC to community, referrals made for [facility] and [facility]. Will continue to follow for DC plans.
--- NOTE | 2018-10-14 14:49 | NUR ---
Care Conference Daughter Loly was not reached by phone for care conference. Daughter was updated by phone later, has concerns re: driving, incontinence and ability to care for self. Daughter states wanting to be here on Saturday to meet with liam BONNER.
--- NOTE | 2018-10-14 15:55 | NUR ---
Physical Therapy Impression Despite persistent L ankle pain, Pt showed good improvement in endurance and speed of ambulation and is nearing all PT goals. Pt ambulated 515 ft with SBA and use of RW. Pt completed TUG test in 22 seconds, an improvement of 5 seconds since eval. Pts ankle pain continued throughout ambulation. Pt performed sit<>supine bed mobility independently, and sit<>stand xfers with SBA and use of RW. Pt could benefit from further skilled PT care to improve balance and mobility to previous baseline levels. Physical Therapy Goals 1. Manisha bed mobility 2. Manisha transfers 3. Manisha ambulation with least restrictive device for 500 ft. 4. Ascend/Descend 4 stairs with Manisha 5. Decrease Timed Up and Go time to <25 seconds, to indicate improved mobility. Patient's Goals
--- NOTE | 2018-10-14 15:55 | NUR ---
This Physical Therapist or Die Cutting Machine Operator was present for the entire physical therapy session directing the services, making the skilled judgement, and was not engaged in treating another patient or doing another task at the same time as the treatment session. Addendum: 10/14/18 at 1555 by SD TAYLOR PT Amended: Links added.
[2018-10-14 16:30] VITALS: BP 131/70
[2018-10-14] MEDS: WARFARIN SOD 5 MG TAB PO SCH (17:15)
[2018-10-15] MEDS: LEVOTHYROXINE SOD 0.137 MG TAB PO SCH (05:20)
[2018-10-15 07:37] VITALS: BP 133/71
[2018-10-15 07:55] LABS: INR 2.66
[2018-10-15] MEDS: PSYLLIUM 28% 1 PACKET PO SCH (09:00)
--- NOTE | 2018-10-15 09:29 | OT ECF NOTE ---
Type of Note: Discharge Note Primary Medical Diagnosis: Generalized weakness s/p left inguinal hernia repair. Occupational Therapy Evaluation Date: 10/10/18 SUBJECTIVE: Prior Hospitalization: H 10/04/18 thru 10/09/18. DOS: 10/04/[address] Burch. Hospital admission complicated by EGD with removal of impacted chicken from esophagus. Prior Level of Function: Independent with all ADLs/IADLs. Pt hauls water into home from well with buckets (currently, no running water in home). Ambulating with no assistive device prior. Prior Living Status: Single level house (3 steps to enter), Alone Community Services: No known needs Home Accessibility: All needs on one level Walk-in shower Tub/shower combination Equipment Owned: Front wheeled walker Cane Wheelchair Medical Complications/Past Medical History: Please refer to EMR Psychosocial Support: Supportive family locally and in [place] Pain Scale (0-10): None reported at time of discharge OBJECTIVE: Strength: MMT: Right Left Shoulder Flexion WFL WFL Elbow Flexion WFL WFL Wrist Extension WFL WFL Forcer Maker WFL WFL (5= normal, 4= good, 3= fair, 2= poor, 1= trace) ROM: Both upper extremities, WFL Sensation: No paraesthesia reported Functional Transfer: Assistive Device: Front wheeled walker Transfer Ability: Modified Independent ADL: Upper body dressing: Assistive device: None Upper body dressing ability: Independent Lower body dressing: Assistive device: None Lower body dressing ability: Independent Toileting: Assistive device: Grab bars, Urinal Toileting ability: Modified Independent Grooming/hygiene: Assistive device: None Grooming ability: Independent Bathing: Assistive device: Shower chair Bathing ability: Set-up Standardized Assessment: Perez Index of Activities of Daily Livin/20 upon evaluation (10/10/18). upon discharge (10/15/18). ASSESSMENT: "Sean" presented to [facility] with decreased activity tolerance and generalized weakness s/p recent left inguinal hernia repair. He has met all appropriate skilled OT goals and desires to discharge to [facility] at current level of function. Pt with no further questions/concerns for OT at time of discharge. Short Term Goals: 1) Pt will be Mod (I) UB/LB dressing. GOAL MET 2) Pt will be Mod (I) toilet task. GOAL MET 3) Pt will be Independent grooming/hygiene. GOAL MET 4) Pt will be Mod (I) shower task. GOAL NOT MET-Will have supervision as [facility] for bathing. 5) Pt Perez Index of ADLs score will improve by 2 points. GOAL MET 6) Pt will be Independent UB HEP.GOAL MET Senior Care Goals: Discharge to least restrictive environment Patient Goals: Patient reports plans to discharge home. Family had arranged transition [facility]. Rehabilitation Prognosis: Good Barriers to Discharge: Discharge plan PLAN: The patient will discharge to [facility] with services. Thank you for this referral. If you have any questions, concerns, or comments about this report or plan, please contact me at . Oksana Collado MS, OTR/L Occupational Therapist KATHY
--- NOTE | 2018-10-15 09:30 | NUR ---
OCCUPATIONAL THERAPY Dressing Assistance: Independent Dressing Aid Required: None-Increased time Bathing Assistance: Set-up Bathing Equipment: Shower Chair Home Assessment: Not Completed Feeding Assistance: Independent Feeding Specialized Equipment: None Toilet Use: Modified I/ AE Verbalizes Needs: Yes Understands Precautions: Yes Cooperative: Yes Family Teaching: No Occupational Therapy Comment:
[2018-10-15] MEDS: PANTOPRAZOLE SOD 40 MG TABEC PO SCH (09:32)
[2018-10-15] MEDS: TAMSULOSIN HCL 0.4 MG CAP PO SCH (09:32)
[2018-10-15] MEDS: FAMOTIDINE 20 MG TAB PO SCH (09:32)
[2018-10-15] MEDS: DOCUSATE SODIUM 100 MG CAP PO SCH (09:33)
[2018-10-15] MEDS: CARVEDILOL 6.25 MG TAB PO SCH (09:33)
--- NOTE | 2018-10-15 10:42 | General Surgery Progress Note ---
Subjective Progress Notes Subjective wants to go home Physical Exam Vital Signs Date Time Temp Pulse Resp B/P (MAP) Pulse Ox O2 Delivery O2 Flow Rate FiO2 10/15/18 07:40 90 Nasal Cannula 0.5 10/15/18 07:37 98.1 63 15 133/71 (91) Intake and Output 10/15/18 07:00 Intake Total 720 ml Output Total 1295 ml Balance -575 ml Intake Oral 720 ml Output Urine Total 1295 ml # Voids 5 General Appearance: Alert, Awake, No Acute Distress, Afebrile Neuro: No Gross deficits Cardiovascular: Normal Rhythm & Peripheral Pulses, Regular Rate and Rhythm, No Edema, No JVD Respiratory: No Respiratory Distress, Clear to Auscultation GI: Soft and Non-Tender, Other (ABD and groin incisions healing well, + BS) Musculoskeletal: No Weakness/Pain Integumentary: Skin Intact without Lesion / Mass Psych: Alert & Oriented X3, Appropriate Mood & Affect Monitor Interpretation: Normal Sinus Rhythm Assessment and Plan Problems: (1) Food impaction of esophagus Status: Resolved Assessment & Plan: Food impaction - cleared endoscopically - no further dysphagia - continue diet as tolerated (2) Urinary retention Status: Chronic Assessment & Plan: Chronic urinary retention - complaints of urinary frequency - UA without evidence of infection - no indication for Palomino placement - start tamsulosin DC on Flomax. Monitor PVR. (3) Incarcerated left inguinal hernia Status: Resolved Assessment & Plan: Incarcerated left inguinal hernia - s/p left inguinal and abdominal approaches - wound appear to be healing well - continue PRN pain control - diet as tolerated - mobilize as tolerated DC teaching done. To spring today. (4) Paroxysmal atrial fibrillation Status: Chronic Assessment & Plan: Paroxysmal atrial fibrillation - continue beta shaila for rate control - chronically anticoagulated with warfarin - INR supratherapeutic this AM, hold PM warfarin dose and recheck in AM - DC Lovenox INR 2.6. DC on Coumadin 2.5 mg per day and monitor INR closely. Time Spent: > 30 min Problem Qualifiers (1) Food impaction of esophagus: Encounter type: subsequent encounter Qualified Codes: T18.128D - Food in esophagus causing other injury, subsequent encounter REGINO HUNG MD Oct 15, 2018 10:42
[2018-10-15] MEDS ORDERED: Tamsulosin Hcl PO (11:30)
--- NOTE | 2018-10-15 11:32 | Hospitalist Depart ---
Discharge Summary Reason for Hosp/Final Diag: (1) Food impaction of esophagus Status: Resolved Hospital Course & Plan: Food impaction - cleared endoscopically - no further dysphagia - continue diet as tolerated (2) Urinary retention Status: Chronic Hospital Course & Plan: Chronic urinary retention - complaints of urinary frequency - UA without evidence of infection - no indication for Palomino placement - start tamsulosin (3) Incarcerated left inguinal hernia Status: Resolved Hospital Course & Plan: Incarcerated left inguinal hernia - s/p left inguinal and abdominal approaches - wound appear to be healing well - continue PRN pain control - diet as tolerated - mobilize as tolerated (4) Paroxysmal atrial fibrillation Status: Chronic Hospital Course & Plan: Paroxysmal atrial fibrillation - continue beta shaila for rate control - chronically anticoagulated with warfarin - INR supratherapeutic this AM, hold PM warfarin dose and recheck in AM - DC Lovenox Departure Weight (Pounds): 168 Weight (Ounces): 3.0 Condition: Improved Discharge: Rehab Facility PT/OT Follow Up For: PT For Strengthening, OT For ADL's Home Health RN Follow Up For: Nursing Assessment, Other Time Spent: > 30 min Discharge Instructions Home Meds Active Scripts [Tamsulosin Hcl(*) 0.4 Mg Cap] 0.4 MG CAP No Conflict Check, 0.4 MG PO QDAY, CAP Prov:REGINO HUNG MD 10/15/18 Levothyroxine Sodium (LEVOTHYROXINE SODIUM) 137 Mcg Tablet, 1 TAB PO QDAY, #90 TAB 4 Refills Prov:MARCELLA JENKINS PHARMD 07/23/18 Warfarin Sodium (WARFARIN SODIUM) 5 Mg Tablet, 0.5 TAB PO QDAY, #90 TAB 3 Refills 1/2 tab Or 1 tab daily as directed by your doctor. Prov:MARCELLA JENKINS PHARMD 08/21/17 Carvedilol (COREG) 6.25 Mg Tablet, 1 TAB PO BID, #180 TAB 4 Refills Prov:MARCELLA JENKINS PHARMD 01/11/17 Reported Medications Oxygen (OXYGEN) Inha, 2 L INH HS, L 11/26/17 Cholecalciferol (Vitamin D3) (VITAMIN D) 2,000 Unit Tablet, 1 TAB PO QDAY, CAPSULE 05/03/15 Vit A/Vit C/Vit E/Zinc/Copper (PRESERVISION AREDS TABLET) 1 Each Tablet, 1 TAB PO QDAY, TAB 05/03/15 Aspirin (ASPIRIN EC) 81 Mg Tablet.dr, 1 TAB PO QDAY 04/13/14 Venous Thromboembolism VTE Risk Physician Assess for VTE Risk: Yes Patient's VTE Risk: Low VTE Diagnostic Test 2 Days Prior to Admit: No Antithrombotics Is Pt On Any Antithrombotics?: Yes Problem Qualifiers (1) Food impaction of esophagus: Encounter type: subsequent encounter Qualified Codes: T18.128D - Food in esophagus causing other injury, subsequent encounter REGINO HUNG MD Oct 15, 2018 11:32
--- NOTE | 2018-10-15 15:48 | PT ECF NOTE ---
Type of Note: Discharge Summary Primary Medical Diagnosis: Hernia Repair Physical Therapy Evaluation Date: 10/09/2018 SUBJECTIVE: Prior Hospitalization: [facility] for Hernia Repair Prior Level of Function: Pt previously living alone, independent with ADLs/IADLs, and ambulatory without AD Prior Living Status: Multi-level home. Alone Community Services: No known needs Home Accessibility: Pt reports approximately 3 stairs to enter home. Pt may discharge to [facility], where he will not have stairs to enter. Equipment Owned: Front wheeled walker, Cane, Wheelchair Medical Complications/Past Medical History: Please see EMR. [facility] which required an additional procedure. Psychosocial Support: Supportive children Pain Scale (0-10): Reports mild pain in abdomen, due to incision. OBJECTIVE: Bed Mobility: Independent Transfers: SBA Assistive Device: Front wheeled walker Gait: SBA x 515' Assistive device: Front wheeled walker Stairs: 4 stairs CGA Assistive device: rails Timed Up and Go (>12 seconds indicated increased risk for falls): 22 seconds with use of RW ASSESSMENT: Pt has progressed toward PT goals and has improved TUG score by 5 seconds. Pt has decided he would like to DC to [facility], thus, Pt does not need to meet current PT goals in order to DC safety. Pt is safe to DC to assisted living with home health PT in order to continue to progress toward complete independence with functional mobility needed to return to his home. Problem List/Current Limitations: Pain, Decreased activity lorrie, Decreased strength, Decreased balance, Generalized weakness Short Term Goals: see above 1. Manisha bed mobility 2. Manisha transfers 3. Manisha ambulation with least restrictive device for 500 ft. 4. Ascend/Descend 4 stairs with Manisha 5. Decrease Timed Up and Go time to <25 seconds, to indicate improved mobility. Slab Installer Goals: Discharge to least restrictive and safe environment Patient Goals: Return home Rehabilitation Prognosis: Good PLAN: DC to assisted living with home health physical therapy. Thank you for this referral. If you have any questions, concerns, or comments about this report or plan, please contact me at . Lorelei Fowler, PT, DPT, GCS MTDD
--- NOTE | 2018-10-20 08:53 | Gen Surgery History & Physical ---
History of Present Illness Chief Complaint Weakness History of Present Illness Recent incarcerated LIH repair then EGD to remove impacted chicken from his esophagus. He's now doing well medically but has issues with weakness and stability with ambulation and so is being admitted to [facility] for continued rehabilitation. History Problems: (1) Urinary retention Status: Chronic (2) CAD (coronary artery disease) Status: Chronic (3) CHF (congestive heart failure) Status: Chronic (4) Paroxysmal atrial fibrillation Status: Chronic (5) Decreased hearing of both ears (6) FH: diabetes mellitus (7) FH: stroke (8) FH: colon cancer (9) FH: myocardial infarction (10) FH: CHF (congestive heart failure) (11) FH myocardial infarction male first degree age known Home Meds Active Scripts [Tamsulosin Hcl(*) 0.4 Mg Cap] 0.4 MG CAP No Conflict Check, 0.4 MG PO QDAY, CAP Prov:REGINO HUNG MD 10/15/18 Levothyroxine Sodium (LEVOTHYROXINE SODIUM) 137 Mcg Tablet, 1 TAB PO QDAY, #90 TAB 4 Refills Prov:MARCLELA JENKINS PHARMD 07/23/18 Warfarin Sodium (WARFARIN SODIUM) 5 Mg Tablet, 0.5 TAB PO QDAY, #90 TAB 3 Refills 1/2 tab Or 1 tab daily as directed by your doctor. Prov:MARCELLA JENKINS PHARMD 08/21/17 Carvedilol (COREG) 6.25 Mg Tablet, 1 TAB PO BID, #180 TAB 4 Refills Prov:MARCELLA JENKINS PHARMD 01/11/17 Reported Medications Oxygen (OXYGEN) Inha, 2 L INH HS, L 11/26/17 Cholecalciferol (Vitamin D3) (VITAMIN D) 2,000 Unit Tablet, 1 TAB PO QDAY, CAPSULE 05/03/15 Vit A/Vit C/Vit E/Zinc/Copper (PRESERVISION AREDS TABLET) 1 Each Tablet, 1 TAB PO QDAY, TAB 05/03/15 Aspirin (ASPIRIN EC) 81 Mg Tablet.dr, 1 TAB PO QDAY 04/13/14 Allergies: Coded Allergies: No Known Drug Allergies (Verified , 06/25/10) Patient History: FH myocardial infarction male first degree age known FH: CHF (congestive heart failure) FATHER, , Age:79 FH: colon cancer FATHER, , Age:79, Onset:64 FH: diabetes mellitus BROTHER OR SISTER, , Age:81 FH: myocardial infarction FATHER, , Age:79, Onset:54 FH: stroke BROTHER OR SISTER, , Age:81 Review of Systems All Systems Reviewed/Normal: Yes, Except as Noted Exam General Appearance: Alert, Awake, No Acute Distress, Afebrile Neuro: No Gross deficits Eyes: PERRLA GI: Abd Soft and Non-Tender (Midline incision and left groin incision are both healing without erythema or drainage) Extremities: Warm, Perfused Psych: Alert & Oriented X3, Appropriate Mood & Affect Assessment and Plan Problems: (1) Weakness Status: Acute Assessment & Plan: Admit to ECF for continued PT/OT. (2) Incarcerated left inguinal hernia Status: Resolved Assessment & Plan: S/p open repair without mesh (3) Food impaction of esophagus Status: Resolved Condition Stable. Time Spent: < 30 min Venous Thromboembolism Antithrombotics Is Pt On Any Antithrombotics?: Yes Problem Qualifiers (1) Food impaction of esophagus: Encounter type: subsequent encounter Qualified Codes: T18.128D - Food in esophagus causing other injury, subsequent encounter MAGNO GIBSON MD Oct 20, 2018 08:53
== END 2018-10-15 13:40 | disposition home health service (06) | DRG 948 ==
LOC: ECF 13:47
PROVIDERS: ADMIT Surgery; ATTEND Surgery
DX: R53.1 Weakness (principal); I48.0 Paroxysmal atrial fibrillation; Z79.01 Long term (current) use of anticoagulants; I25.2 Old myocardial infarction; H91.93 Unspecified hearing loss, bilateral; R33.9 Retention of urine, unspecified; I50.9 Heart failure, unspecified
CPT/HCPCS: 36415; 81001; 85610; 87088; 97161; 97165; J1650

== ENCOUNTER → 2018-10-21 | Outpatient (CLI) | payer MEDICARE, OTHER ==
[2015-04-10 13:18] VITALS: BMI 26.3
[~2018-10-21] MED LIST changes: +Tamsulosin Hcl PO
[2018-10-21 08:53] LABS: INR 3.67
== END ==
LOC: LAB 01:40
PROVIDERS: ATTEND Pharmacist Pharmacotherapy
DX: I48.0 Paroxysmal atrial fibrillation (principal)
CPT/HCPCS: 36415; 85610

== ENCOUNTER → 2018-10-28 | Outpatient (CLI) | payer MEDICARE, OTHER ==
[2015-04-10 13:18] VITALS: BMI 26.3
[2018-10-28 09:06] LABS: INR 2.66
== END ==
LOC: ZZSPRING 02:05
PROVIDERS: ATTEND Pharmacist Pharmacotherapy
DX: I48.0 Paroxysmal atrial fibrillation (principal)
CPT/HCPCS: 36415; 85610

== ENCOUNTER → 2018-11-04 | Outpatient (CLI) | payer MEDICARE, OTHER ==
[2015-04-10 13:18] VITALS: BMI 26.3
[2018-11-04 08:43] LABS: INR 2.4
== END ==
LOC: ZZSPRING 00:03
PROVIDERS: ATTEND Pharmacist Pharmacotherapy
DX: I48.0 Paroxysmal atrial fibrillation (principal)
CPT/HCPCS: 36415; 85610

== ENCOUNTER → 2018-11-05 | Outpatient (CLI) | payer MEDICARE, OTHER ==
[2015-04-10 13:18] VITALS: BMI 26.3
[2018-11-05 12:05] LABS: PLATELET COUNT, AUTOMATED 194 K/uL (150-450)
== END ==
LOC: LAB 11:38
PROVIDERS: ATTEND Internal Medicine
DX: I25.10 Atherosclerotic heart disease of native coronary artery without angina pectoris (principal); E03.9 Hypothyroidism, unspecified; I48.0 Paroxysmal atrial fibrillation; N40.0 Benign prostatic hyperplasia without lower urinary tract symptoms
CPT/HCPCS: 36415; 82040; 82247; 82310; 82374; 82435; 82565; 82947; 84075; 84132; 84153; 84155; 84295; 84439; 84443; 84450; 84460; 84520; 85025

== ENCOUNTER 2018-11-23 10:45 | Inpatient (IN) | payer MEDICARE, OTHER ==
[2015-04-10 13:18] VITALS: Ht 175.3 cm; Wt 78.2 kg
[~2018-11-23] VITALS: Ht 175.3 cm; Wt 78.2 kg
--- NOTE | 2018-11-23 10:47 | ER Report ---
History and Physical Time Seen By MD: 10:43 HPI/ROS CHIEF COMPLAINT: Right 2nd toe infection HISTORY OF PRESENT ILLNESS: Patient is an 88-year-old male here with complaints of 2 week history of bleeding from the dorsal aspect of the right 2nd toe nail with subsequent development of an ulcer, infection and edema. Patient is afebrile, hemodynamically stable at time of evaluation. Patient denies history of diabetes. Patient does describe the his shoe does rub up against the dorsal aspect of that toe likely causing his current issue. Denies prior toe amputations REVIEW OF SYSTEMS: Constitutional: No fever, no chills. Eyes: No discharge. ENT: No sore throat. Cardiovascular: No chest pain, no palpitations. Respiratory: No cough, no shortness of breath. Gastrointestinal: No abdominal pain, no vomiting. Genitourinary: No hematuria. Musculoskeletal: Right 2nd dorsal toe infection Skin: No rashes. Neurological: No headache. Allergies: Coded Allergies: No Known Drug Allergies (Verified , 06/25/10) Home Meds Active Scripts Carvedilol (COREG) 6.25 Mg Tablet, 1 TAB PO BID, #60 TAB 0 Refills Prov:REYNOLD BIANCHI MD 11/05/18 Warfarin Sodium (WARFARIN SODIUM) 5 Mg Tablet, 0.5 TAB PO QDAY, #90 TAB 3 Refills 1/2 tab Or 1 tab daily as directed by your doctor. Prov:REYNOLD BIANCHI MD 11/05/18 Levothyroxine Sodium (LEVOTHYROXINE SODIUM) 137 Mcg Tablet, 1 TAB PO QDAY, #90 TAB 4 Refills Prov:MARCELLA JENKINS PHARMD 07/23/18 Reported Medications Oxygen (OXYGEN) Inha, 2 L INH HS, L 11/26/17 Cholecalciferol (Vitamin D3) (VITAMIN D) 2,000 Unit Tablet, 1 TAB PO QDAY, CAPSULE 05/03/15 Vit A/Vit C/Vit E/Zinc/Copper (PRESERVISION AREDS TABLET) 1 Each Tablet, 1 TAB PO QDAY, TAB 05/03/15 Aspirin (ASPIRIN EC) 81 Mg Tablet.dr, 1 TAB PO QDAY 04/13/14 Discontinued Scripts [Tamsulosin Hcl(*) 0.4 Mg Cap] 0.4 MG CAP No Conflict Check, 0.4 MG PO QDAY, CAP Prov:REGINO HUNG MD 10/15/18 Hx Smoking: No Smoking Status: Former Smoker Exposure to Second Hand Smoke?: Yes Hx Substance Use Disorder: No Hx Alcohol Use: Yes Constitutional Vital Sign - Last 24 Hours 11/23/18 10:49 Temp 97.4 Pulse 64 Resp 20 B/P (MAP) 132/73 Pulse Ox 91 O2 Delivery Room Air Physical Exam General Appearance: The patient is alert, has no immediate need for airway protection and no signs of toxicity. No acute distress Eyes: Pupils equal and round no pallor or injection. ENT, Mouth: Mucous membranes are moist. Respiratory: There are no retractions, lungs are clear to auscultation. Cardiovascular: Regular rate and rhythm. Gastrointestinal: Abdomen is soft and non tender, no masses, bowel sounds normal. Neurological: No focal neurological deficits Skin: Ulceration on the dorsal aspect of the right 2nd toe Musculoskeletal: Neck is supple non tender. Tenderness on palpation of the right 2nd toe DIFFERENTIAL DIAGNOSIS: After history and physical exam differential diagnosis was considered for cellulitis, abscess, osteomyelitis, infected ulcer Medical Decision Making Data Points Result Diagram: 11/23/18 1055 11/23/18 1055 Laboratory Hematology Test 11/23/18 10:55 White Blood Count 8.7 k/uL (4.5-11.0) Red Blood Count 3.93 M/uL (4.00-5.60) L Hemoglobin 13.4 g/dL (14.0-18.0) L Hematocrit 38.9 % (42.0-52.0) L Mean Corpuscular Volume 99.0 fL (80.0-96.0) H Mean Corpuscular Hemoglobin 34.2 pg (26.0-33.0) H Mean Corpuscular Hemoglobin Concent 34.6 g/dL (32.0-36.0) Red Cell Distribution Width 14.0 % (11.5-14.5) Platelet Count 222 K/uL (150-450) Mean Platelet Volume 7.3 fL (7.2-11.1) Neutrophils (%) (Auto) 66.6 % (39.4-72.5) Lymphocytes (%) (Auto) 11.8 % (17.6-49.6) L Monocytes (%) (Auto) 10.4 % (4.1-12.4) Eosinophils (%) (Auto) 10.3 % (0.4-6.7) H Basophils (%) (Auto) 0.9 % (0.3-1.4) Nucleated RBC Relative Count (auto) 0.0 /100WBC Neutrophils # (Auto) 5.8 K/uL (2.0-7.4) Lymphocytes # (Auto) 1.0 K/uL (1.3-3.6) L Monocytes # (Auto) 0.9 K/uL (0.3-1.0) Eosinophils # (Auto) 0.9 K/uL (0.0-0.5) H Basophils # (Auto) 0.1 K/uL (0.0-0.1) Nucleated RBC Absolute Count (auto) 0.00 K/uL Peripheral Blood Smear Yes Y/N Erythrocyte Sedimentation Rate 22 mm/HOUR (0-20) H Chemistry Test 11/23/18 10:55 Sodium Level 137 mmol/L (137-145) Potassium Level 4.6 mmol/L (3.5-5.0) Chloride Level 105 mmol/L (98-107) Carbon Dioxide Level 24 mmol/L (22-30) Blood Urea Nitrogen 20 mg/dl (9-21) Creatinine 1.00 mg/dl (0.66-1.25) Glomerular Filtration Rate Calc > 60.0 Random Glucose 85 mg/dl (75-110) Lactate 1.7 mmol/L (0.7-2.1) Calcium Level 8.9 mg/dl (8.4-10.2) Total Bilirubin 0.8 mg/dl (0.2-1.3) Aspartate Amino Transf (AST/SGOT) 16 U/L (0-35) Alanine Aminotransferase (ALT/SGPT) 27 U/L (0-56) Alkaline Phosphatase 84 U/L (0-126) C-Reactive Protein 11.8 mg/dl (<1.0) Total Protein 6.4 g/dl (6.3-8.2) Albumin 3.6 g/dl (3.5-5.0) EKG/Imaging Imaging PATIENT NAME: Tim Fowler : 1930 MR: [id number] V: [id number] EXAM DATE: ORDERING PHYSICIAN: ALICJA ROMO TECHNOLOGIST: [place] [facility] [place]: Tim Fowler : 1930 Visit/Account:[id number] Date of Sevice: 11/23/2018 FOOT 3 VIEWS RIGHT Indication: Great toe infection. Comparison: None Available Findings: 3 views of the right foot were obtained. No acute fracture or dislocation. No bony lesions or periosteal abnormality. The first MTP joint does show joint space narrowing, small osteophytes and subchondral bony change. The medial aspect joint does show medial supracondylar bony cystic changes. No prominent soft tissue abnormality. No other appreciable degenerative changes. Soft tissues show edema mainly in the toes. Vascular calcification is present. The lateral exam does show linear coarse calcifications along posterior aspect of soft tissues which could be secondary to some calcifications of the Achilles tendon. The Achilles tendon at the calc aneal junction may be thickened. No radiopaque foreign body. IMPRESSION: 1.No acute osseous abnormality of the right foot. No discrete indication of osteomyelitis. 2. The first MTP joint does show changes which are likely secondary to osteoarthritis. However early underlying gout could also be present. 3. Soft tissue edema mainly in the toes. 4. Possible thickening of the proximal Achilles tendon at the calcaneus and possible coarse linear calcifications of the Achilles tendon. This could be s econdary to tendinopathy. PATIENT NAME: Tim Fowler : 1930 MR: [id number] V: [id number] EXAM DATE: ORDERING PHYSICIAN: ALICJA ROMO TECHNOLOGIST: Location: [facility] [place] Patient: Tim Fowler : 1930 Visit/Account:[id number] Date of Sevice: 11/23/2018 XR WRIST 2 VWS LT Indication: Left wrist pain after fall. Comparison: None Available. Findings: AP and lateral view of the left wrist. No acute fracture. Previous avulsion of the ulnar styloid. No dislocation. No bony lesions. There is moderate degenerative change seen in the first carpometacarpal joint including joint space, subchondral bony change and osteophytes. There is prominent calcifications in the triangular fibrocartilage region. Callus cases also seen along the lateral joint space of the MCP joint of the fifth finger. Soft tissues show mild edema. No radiopaque foreign body. IMPRESSION: 1. No acute osseous abnormality left wrist. 2. 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 3. Calcifications of the triangle fibrocartilage and along the MCP joint of the fifth finger. These are nonspecific but could represent CPPD. ED Course/Re-evaluation ED Course Patient is an 88-year-old male here with complaints of right 2nd dorsal toe pain, ulceration and subsequent development of infection with surrounding erythema and edema. X-ray imaging showed no bony involvement. Labs were re markable for elevated inflammatory markers however there was no leukocytosis. Blood cultures were collected. Patient was given ceftriaxone for antimicrobial coverage. I discussed the patient with Dr. Mckeon who accepted the patient to the hospitalist service. Patient was stable at time of admission. Decision to Disposition Date: Nov 23, 2018 Decision to Disposition Time: 13:18 Depart Departure Latest Vital Signs Vital Signs Date Time Temp Pulse Resp B/P (MAP) Pulse Ox O2 Delivery O2 Flow Rate FiO2 11/23/18 10:49 97.4 64 20 132/73 91 Room Air Impression: Primary Impression: Cellulitis of toe of right foot Condition: Improved Disposition: Admitted from ER Referrals: REYNOLD BIANCHI MD (PCP) ALICJA ROMO DO Nov 23, 2018 10:47
[2018-11-23] MEDS ORDERED: NS(*) 0.9% 1000 ML BAG 1,000 ML IV ONE (10:56)
[2018-11-23 11:12] LABS: PLATELET COUNT, AUTOMATED 222 K/uL (150-450)
--- NOTE | 2018-11-23 12:18 | RADIOLOGY IMAGING REPORT ---
[place] [facility] [place] Tim Fowler : 1930 MR: [id number] V: [id number] EXAM DATE: ORDERING PHYSICIAN: ALICJA ROMO TECHNOLOGIST: [place] [facility] [place]: Tim Fowler : 1930 Visit/Account:[id number] Date of Sevice: 11/23/2018 FOOT 3 VIEWS RIGHT Indication: Great toe infection. Comparison: None Available Findings: 3 views of the right foot were obtained. No acute fracture or dislocation. No bony lesions or periosteal abnormality. The first MTP joint does show joint space narrowing, small osteophytes and subchondral bony change. The medial aspect joint d oes show medial supracondylar bony cystic changes. No prominent soft tissue abnormality. No other romain reciable degenerative changes. Soft tissues show edema mainly in the toes. Vascular calcification is present. The lateral exam does show linear coarse calcifications along posterior aspect of soft tissu es which could be secondary to some calcifications of the Achilles tendon. The Achilles tendon at the calcaneal junction may be thickened. No radiopaque foreign body. IMPRESSION: 1.No acute osseous abnormality of the right foot. No discrete indication of osteomyelitis. 2. The first MTP joint does show changes which are likely secondary to osteoarthritis. However early underlying gout could also be present. 3. Soft tissue edema mainly in the toes. 4. Possible thickening of the proximal Achilles tendon at the calcaneus and possible coarse linear ca lcifications of the Achilles tendon. This could be secondary to tendinopathy. Report Dictated By: Aravind Fountain at 11/23/2018 12:06 PM Report E-Signed By: Aravind Fountain at 11/23/2018 12:12 PM WSN:[id number]
--- NOTE | 2018-11-23 12:22 | RADIOLOGY IMAGING REPORT ---
FACILITY: [facility] - [place] PATIENT NAME: Tim Fowler : 1930 MR: [id number] V: [id number] EXAM DATE: ORDERING PHYSICIAN: ALICJA ROMO TECHNOLOGIST: Location: [facility] Patient: Tim Fowler : 1930 Visit/Account:[id number] Date of Sevice: 11/23/2018 XR WRIST 2 VWS LT Indication: Left wrist pain after fall. Comparison: None Available. Findings: AP and lateral view of the left wrist. No acute fracture. Previous avulsion of the ulnar styloid. No dislocation. No bony lesions. There is moderate degenerative change seen in the first carpometacarpal joint including joint space, subchondr al bony change and osteophytes. There is prominent calcifications in the triangular fibrocartilage re gion. Callus cases also seen along the lateral joint space of the MCP joint of the fifth finger. Soft tissues show mild edema. No radiopaque foreign body. IMPRESSION: 1. No acute osseous abnormality left wrist. 2. 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 3. Calcifications of the triangle fibrocartilage and along the MCP joint of the fifth finger. These a re nonspecific but could represent CPPD. Report Dictated By: Aravind Fountain at 11/23/2018 12:12 PM Report E-Signed By: Aravind Fountain at 11/23/2018 12:15 PM WSN:[id number]
[2018-11-23] MEDS ORDERED: cefTRIAXone 2 GM VIAL IVP ONE (12:35)
[2018-11-23] MEDS ORDERED: INFLUENZA VIRUS VAC 0.5ML SYR IM ONLY ONE (13:45)
--- NOTE | 2018-11-23 14:00 | History & Physical ---
History of Present Illness Chief Complaint Right 2nd toe infection History of Present Illness Patient is an 88-year-old male who presented to the emergency department with complaints of 2 week history of bleeding from the dorsal aspect of the right 2nd toe nail with subsequent development of an ulcer, infection and edema. Patient is afebrile, hemodynamically stable at time of evaluation. Patient denies history of diabetes. Patient does describe the his shoe does rub up against the dorsal aspect of that toe likely causing his current issue. Denies prior toe amputations. He was recommended for admission for IV antibiotics for cellulitis of his toe. History Problems: (1) Paroxysmal atrial fibrillation Status: Chronic (2) CAD (coronary artery disease) Status: Chronic (3) Hypothyroidism Status: Chronic Home Meds Active Scripts Carvedilol (COREG) 6.25 Mg Tablet, 1 TAB PO BID, #60 TAB 0 Refills Prov:REYNOLD BIANCHI MD 11/05/18 Warfarin Sodium (WARFARIN SODIUM) 5 Mg Tablet, 0.5 TAB PO QDAY, #90 TAB 3 Refills 1/2 tab Or 1 tab daily as directed by your doctor. Prov:REYNOLD BIANCHI MD 11/05/18 Levothyroxine Sodium (LEVOTHYROXINE SODIUM) 137 Mcg Tablet, 1 TAB PO QDAY, #90 TAB 4 Refills Prov:MARCELLA JENKINS PHARMD 07/23/18 Reported Medications Oxygen (OXYGEN) Inha, 2 L INH HS, L 11/26/17 Cholecalciferol (Vitamin D3) (VITAMIN D) 2,000 Unit Tablet, 1 TAB PO QDAY, CAPSULE 05/03/15 Vit A/Vit C/Vit E/Zinc/Copper (PRESERVISION AREDS TABLET) 1 Each Tablet, 1 TAB PO QDAY, TAB 05/03/15 Aspirin (ASPIRIN EC) 81 Mg Tablet.dr, 1 TAB PO QDAY 04/13/14 Discontinued Scripts [Tamsulosin Hcl(*) 0.4 Mg Cap] 0.4 MG CAP No Conflict Check, 0.4 MG PO QDAY, CAP Prov:REGINO HUNG MD 10/15/18 Allergies: Coded Allergies: No Known Drug Allergies (Verified , 06/25/10) Patient History: FH myocardial infarction male first degree age known FH: CHF (congestive heart failure) FATHER, , Age:79 FH: colon cancer FATHER, , Age:79, Onset:64 FH: diabetes mellitus BROTHER OR SISTER, , Age:81 FH: myocardial infarction FATHER, , Age:79, Onset:54 FH: stroke BROTHER OR SISTER, , Age:81 Hx Smoking: No Smoking Status: Former Smoker Exposure to Second Hand Smoke?: Yes Caffeine Intake: Coffee, Tea, Soda Caffeine/Cups Per Day: 10-12 cups per day Hx Alcohol Use: Yes Hx Substance Use Disorder: No Social Drug Use: Never Review of Systems All Systems Reviewed/Normal: Yes, Except as Noted Exam Vital Signs Vital Signs Date Time Temp Pulse Resp B/P (MAP) Pulse Ox O2 Delivery O2 Flow Rate FiO2 11/23/18 10:49 97.4 64 20 132/73 91 Room Air General Appearance: Alert, Awake, No Acute Distress, Afebrile Neuro: No Gross deficits Cardiovascular: Other (bradycardia noted, regular rhythm) Respiratory: No Respiratory Distress, Clear to Auscultation GI: Abd Soft and Non-Tender, Other (abdominal wound appears healed from surgery last month) Extremities: Warm, Perfused; No Edema Integumentary: Other (right second toe edema, erythema, cellulitis present) Psych: Alert & Oriented X3, Appropriate Mood & Affect Medical Decision Making Data Points Result Diagram: 11/23/18 1055 11/23/18 1055 EKG / Imaging Imaging PATIENT NAME: Tim Fowler : 1930 MR: [id number] V: [id number] EXAM DATE: ORDERING PHYSICIAN: ALICJA ROMO TECHNOLOGIST: Location: [facility] - [place] Patient: Tim Fowler : 1930 Visit/Account:[id number] Date of Sevice: 11/23/2018 FOOT 3 VIEWS RIGHT Indication: Great toe infection. Comparison: None Available Findings: 3 views of the right foot were obtained. No acute fracture or dislocation. No bony lesions or periosteal abnormality. The first MTP joint does show joint space narrowing, small osteophytes and subchondral bony change. The medial aspect joint does show medial supracondylar bony cystic changes. No prominent soft tissue abnormality. No other appreciable degenerative changes. Soft tissues show edema mainly in the toes. Vascular calcification is present. The lateral exam does show linear coarse calcifications along posterior aspect of soft tissues which could be secondary to some calcifications of the Achilles tendon. The Achilles tendon at the calcaneal junction may be thickened. No radiopaque foreign body. IMPRESSION: 1.No acute osseous abnormality of the right foot. No discrete indication of osteomyelitis. 2. The first MTP joint does show changes which are likely secondary to osteoarthritis. However early underlying gout could also be present. 3. Soft tissue edema mainly in the toes. 4. Possible thickening of the proximal Achilles tendon at the calcaneus and possible coarse linear calcifications of the Achilles tendon. This could be secondary to tendinopathy. PATIENT NAME: Tim Fowler : 1930 MR: [id number] V: [id number] EXAM DATE: ORDERING PHYSICIAN: ALICJA ROMO TECHNOLOGIST: Location: [facility] - [place] Patient: Tim Fowler : 1930 Visit/Account:[id number] Date of Sevice: 11/23/2018 XR WRIST 2 VWS LT Indication: Left wrist pain after fall. Comparison: None Available. Findings: AP and lateral view of the left wrist. No acute fracture. Previous avulsion of the ulnar styloid. No dislocation. No bony lesions. There is moderate degenerative change seen in the first carpometacarpal joint including joint space, subchondral bony change and o steophytes. There is prominent calcifications in the triangular fibrocartilage region. Callus cases also seen along the lateral joint space of the MCP joint of the fifth finger. Soft tissues show mild edema. No radiopaque foreign body. IMPRESSION: 1. No acute osseous abnormality left wrist. 2. 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 3. Calcifications of the triangle fibrocartilage and along the MCP joint of the fifth finger. These are nonspecific but could represent CPPD. Assessment and Plan Problems: (1) Cellulitis of toe of right foot Status: Acute Assessment & Plan: He presented with two week history of cellulitis, edema, erythema of his right second toe. He has no history of diabetes. He has been rubbing on his shoes. He was given Rocephin in the emergency department, but will switch to Ancef for soft tissue infection. Continue to monitor. Will consult PT wound care also. (2) Paroxysmal atrial fibrillation Status: Chronic Assessment & Plan: Continue chronic Carvedilol with hold parameters and Warfarin. Will check INR today. (3) Hypothyroidism Status: Chronic Assessment & Plan: Continue chronic Levothyroxine. (4) CAD (coronary artery disease) Status: Chronic Assessment & Plan: He has history of [place] with triple bypass in 2010. Continue chronic baby aspirin. Venous Thromboembolism Antithrombotics Is Pt On Any Antithrombotics?: Yes Exam Sepsis Risk: No Definite Risk MONIQUE HAWKINS Nov 23, 2018 14:00
[2018-11-23] MEDS ORDERED: NS(*) 0.9% 500 ML BAG 500 ML IV PRN ×2 (14:15→17:25)
[2018-11-23 14:28] VITALS: BP 153/72
--- NOTE | 2018-11-23 16:53 | EKG ---
FACILITY: [facility] PATIENT NAME: LEORA TAYLOR : [id number] MR: [id number] V: [id number] EXAM DATE: ORDERING PHYSICIAN: ALICJA ROMO TECHNOLOGIST: Test Reason : comparison Blood Pressure : / mmHG Vent. 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
[2018-11-23] MEDS: ceFAZolin(*) 2GM/D5W 50ML 50 ML IVPB SCH (17:30)
[2018-11-23 20:02] LABS: INR 3.29
[2018-11-23] MEDS: ACETAMINOPHEN 325 MG TAB PO PRN (20:08)
[2018-11-23] MEDS: CARVEDILOL 6.25 MG TAB PO SCH (20:51)
[2018-11-23 22:55] VITALS: BP 156/71
[2018-11-24] MEDS: ceFAZolin(*) 2GM/D5W 50ML 50 ML IVPB SCH ×3 (00:23→16:33)
[2018-11-24] MEDS: ACETAMINOPHEN 325 MG TAB PO PRN (03:07)
[2018-11-24] MEDS: LEVOTHYROXINE SOD 0.137 MG TAB PO SCH (05:51)
[2018-11-24 08:29] VITALS: BP 151/73
[2018-11-24] MEDS ORDERED: CHOLECALCIFEROL PO SCH (09:00)
[2018-11-24] MEDS: CHOLECALCIFEROL 1000 UNIT TAB PO SCH (09:03)
[2018-11-24] MEDS: CARVEDILOL 6.25 MG TAB PO SCH ×2 (09:03→21:03)
[2018-11-24] MEDS: ACETAMINOPHEN 500 MG TAB PO PRN ×2 (09:03→21:02)
[2018-11-24] MEDS: ASPIRIN 81 MG ENTERIC COATED PO SCH (09:04)
[2018-11-24] MEDS ORDERED: MORPHINE 4 MG/ML SDV IVP PRN (09:45)
[2018-11-24] MEDS ORDERED: COLCHICINE 0.6 MG TAB PO ONE ×2 (09:50→14:00)
--- NOTE | 2018-11-24 09:59 | Hospitalist Progress Note ---
Subjective Progress Notes Subjective He was admitted with cellulitis of the toe. He has complaints of wrist pain. Wrist x-ray showing likely pseudogout and osteoarthritis. Patient Complains of: Cardiovascular: No: Chest Pain Respiratory: No: Shortness of Breath Physical Exam Vital Signs Date Time Temp Pulse Resp B/P (MAP) Pulse Ox O2 Delivery O2 Flow Rate FiO2 11/24/18 08:29 71 20 151/73 (99) 94 Nasal Cannula 2.0 11/23/18 22:55 97.6 Intake and Output 11/24/18 07:03 Intake Total 1108 ml Balance 1108 ml Intake Oral 950 ml IV Total 158 ml # Voids 4 General Appearance: Alert, Awake, No Acute Distress, Afebrile Neuro: No Gross deficits Cardiovascular: Regular Rate and Rhythm Respiratory: No Respiratory Distress, Clear to Auscultation GI: Soft and Non-Tender Musculoskeletal: Other (left wrist swollen, hot to the touch, erythema present) Extremities: Warm, Perfused, Edema (1+pitting edema to foot) Integumentary: Other (cellulitis line to right foot shows some improvement overnight, toe appears less erythema) Psych: Appropriate Mood & Affect Result Diagram: 11/23/18 1055 11/23/18 1055 Assessment and Plan Problems: (1) Cellulitis of toe of right foot Status: Acute Assessment & Plan: He presented with two week history of cellulitis, edema, erythema of his right second toe. He has no history of diabetes. He has been rubbing on his shoes. He was given Rocephin in the emergency department, but will switch to Ancef for soft tissue infection. Continue to monitor. Will consult PT wound care also. (2) Pseudogout of joint of left hand Status: Acute Assessment & Plan: Patient has history of gout. Left wrist and hand are swollen, hot to the touch. He will be given colchicine. Continue to monitor. (3) Paroxysmal atrial fibrillation Status: Chronic Assessment & Plan: Continue chronic Carvedilol with hold parameters and Warfarin. INR 3.2, will hold Warfarin today, recheck INR tomorrow. (4) Hypothyroidism Status: Chronic Assessment & Plan: Continue chronic Levothyroxine. (5) CAD (coronary artery disease) Status: Chronic Assessment & Plan: He has history of [place] with triple bypass in 2010. Continue chronic baby aspirin. Exam Sepsis Risk: No Definite Risk MONIQUE HAWKINS ASE CERTIFIED TECHNICIAN Nov 24, 2018 09:59
--- NOTE | 2018-11-24 12:10 | NUR ---
Physical Therapy Impression Non-excisional debridement completed with the use of tweezers and scissors to a depth of subcutaneous tissue in order to clean wound edges and remove non-viable tissue. 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 Wound cleansed with sterile saline. 2 satellite lesions are evident at lateral side of main wound bed. These were covered with xeroform vasaline gauze followed by silver calcium alginate and secured with rolled sof-form gauze. Pt to wear cast shoe with any ambulation. Recommend consult with foot and ankle specialist. Pt also noted to have a very inflamed and red L) wrist and a history of gout. Pt has been started on oral gout medication. PT to re-eval pending recommendations by surgeon. Dr. Davis contacted by hospitalist. Physical Therapy Goals Patient's Goals
[2018-11-24] MEDS ORDERED: WARFARIN SOD 2.5 MG TAB PO SCH (13:00)
[2018-11-24] MEDS ORDERED: WARFARIN SOD 1 MG TAB PO SCH (13:00)
--- NOTE | 2018-11-24 13:18 | Antimicrobial Stewardship ---
Antimicrobial Time Out Antimicrobial Stewardship MD Service: Hospitalist Indications: Cellulitis Antimicrobial Used CEFTRIAXONE 2G X 1 DOSE, THEN SWITCHED TO ANCEF 2G Q8H Start Date: Nov 23, 2018 Culture Results: No (NO GROWTH) Eligible for PO Conversion Eligable for PO Conversion: Yes Reviewed with Provider Reviewed w/ Provider on Rounds: No Comments Comments Patient admitted with cellulitis of toe, possible osteo. Started on ceftriaxone x 1 dose then switched to ancef 2g q8h. Cultures pending with no growth. HILARY STRICKLAND Nov 24, 2018 13:18
[2018-11-24 15:14] VITALS: BP 135/72
[2018-11-24 19:01] VITALS: BP 138/68
[2018-11-25] MEDS: ceFAZolin(*) 2GM/D5W 50ML 50 ML IVPB SCH ×3 (00:37→17:22)
[2018-11-25 03:04] VITALS: BP 135/72
[2018-11-25] MEDS: LEVOTHYROXINE SOD 0.137 MG TAB PO SCH (05:31)
[2018-11-25 06:08] LABS: INR 2.54
[2018-11-25 06:10] LABS: PLATELET COUNT, AUTOMATED 196 K/uL (150-450)
[2018-11-25] MEDS: ACETAMINOPHEN 500 MG TAB PO PRN ×2 (08:09→16:42)
[2018-11-25 08:46] VITALS: BP 126/72
[2018-11-25] MEDS: CHOLECALCIFEROL 1000 UNIT TAB PO SCH (08:48)
[2018-11-25] MEDS: ASPIRIN 81 MG ENTERIC COATED PO SCH (08:48)
[2018-11-25] MEDS: CARVEDILOL 6.25 MG TAB PO SCH ×2 (08:49→21:27)
--- NOTE | 2018-11-25 11:48 | Hospitalist Progress Note ---
Subjective Progress Notes Subjective No acute events overnight. He is still complaining of pain to his left wrist, which remains warm to the touch. Redness to right 2nd toe is within the demarcation line, and swelling seems to be improving. Patient Complains of: Neurological: No: Confusion Cardiovascular: No: Chest Pain, Palpitations Physical Exam Vital Signs Date Time Temp Pulse Resp B/P (MAP) Pulse Ox O2 Delivery O2 Flow Rate FiO2 11/25/18 09:40 95 Nasal Cannula 2.0 11/25/18 08:46 98.6 66 20 126/72 (90) Intake and Output 11/25/18 01:03 Intake Total 600 ml Balance 600 ml Intake Oral 550 ml IV Total 50 ml # Voids 8 General Appearance: Alert, Awake Cardiovascular: Regular Rate and Rhythm Respiratory: No Respiratory Distress, Clear to Auscultation Musculoskeletal: Other (pain to left wrist, and R. 2nd toe. ) Result Diagram: 11/25/18 0540 11/25/18 0540 Assessment and Plan Problems: (1) Cellulitis of toe of right foot Status: Acute Assessment & Plan: He presented with two week history of cellulitis, edema, er ythema of his right second toe. He has no history of diabetes. He was given Rocephin in the emergency department and switched to Ancef for soft tissue infection; will consider switching to oral antibiotics. Dr. Davis contacted to [facility] for possible need to toe amputation. (2) Pseudogout of joint of left hand Status: Acute Assessment & Plan: Patient has history of gout. Left wrist and hand are swollen, hot to the touch. He has been placed on colchicine with dose adjustment for concurrent Coreg administration. Will continue to monitor. (3) Paroxysmal atrial fibrillation Status: Chronic Assessment & Plan: Continue chronic Carvedilol with hold parameters and W arfarin. INR 2.54, holding Warfarin for possible surgical intervention, will recheck INR in am. Will consider restarting Warfarin if surgery is ruled out. (4) Hypothyroidism Status: Chronic Assessment & Plan: Continue chronic Levothyroxine. (5) CAD (coronary artery disease) Status: Chronic Assessment & Plan: He has history of [place] with triple bypass in 2010. Continue chronic baby aspirin. Exam Sepsis Risk: No Definite Risk CYNTHIA OROZOC Nov 25, 2018 11:48
[2018-11-25] MEDS: COLCHICINE 0.6 MG TAB PO SCH (12:04)
[2018-11-25] MEDS ORDERED: WARFARIN SOD 5 MG TAB PO SCH (13:00)
[2018-11-25 15:55] VITALS: BP 132/63
--- NOTE | 2018-11-25 16:21 | NUR ---
Physical Therapy Impression Consulted with Dr. Davis regarding wound. Pt electing to treat wound conservatively initially and is encouraged to follow up with Dr. Davis as an out pt for further needs or wound complications. Pt currently staying at [facility] and previously had [facility] services as he was recovering from surgery. PT recommends to return to that supervised and supported environment with [facility] to resume care and complete wound care and management in an attempt to resolve this erosive wound. 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 Davis at a later date if appropriate. Physical Therapy Goals Patient's Goals
[2018-11-25 19:13] VITALS: BP 107/53
[2018-11-25 21:25] VITALS: BP 123/65
[2018-11-25 23:36] VITALS: BP 127/66
[2018-11-26] MEDS: ceFAZolin(*) 2GM/D5W 50ML 50 ML IVPB SCH (00:35)
[2018-11-26 03:46] VITALS: BP 138/62
[2018-11-26] MEDS: LEVOTHYROXINE SOD 0.137 MG TAB PO SCH (06:13)
[2018-11-26 06:48] VITALS: BP 135/68
--- NOTE | 2018-11-26 09:16 | NUR ---
Occupational Therapy Impression No OT needs. Pt. ready for d/c to [facility]. Occupational Therapy Goals Patient's Goal
[2018-11-26] MEDS ORDERED: COLC0.6T2 PO (09:43)
[2018-11-26] MEDS ORDERED: CEPH500C24 PO (09:43)
[2018-11-26] MEDS: CARVEDILOL 6.25 MG TAB PO SCH (09:44)
[2018-11-26] MEDS: ASPIRIN 81 MG ENTERIC COATED PO SCH (09:45)
[2018-11-26] MEDS: CEPHALEXIN MONO 500 MG CAP PO SCH ×2 (09:45→12:53)
[2018-11-26] MEDS: CHOLECALCIFEROL 1000 UNIT TAB PO SCH (09:46)
[2018-11-26] MEDS: COLCHICINE 0.6 MG TAB PO SCH (09:46)
--- NOTE | 2018-11-26 10:30 | NUR ---
Physical Therapy Impression PT goals met with initial visit. Pt notes that he plans to return to [facility] for further care to address wound healing and strengthening. Physical Therapy Goals Patient's Goals
--- NOTE | 2018-11-26 12:25 | Hospitalist Depart ---
Discharge Summary Reason for Hosp/Final Diag: (1) Cellulitis of toe of right foot Status: Acute Hospital Course & Plan: He presented with two week history of cellulitis, edema, erythema of his right second toe. He has no history of diabetes. He was given Rocephin in the emergency department and Ancef for soft tissue coverage. Ancef was discontinued today and he was placed on a 7 day course of Keflex PO. Dr. Alejo evaluated his toe for possible surgical intervention realted to wound and Gout involvement. He recommended wound care versus amputation. The patient expressed he would like to pursue wound care instead of any surgical intervention at this time. His swelling and erythema has improved with the antibiotic course. (2) Pseudogout of joint of left hand Status: Acute Hospital Course & Plan: Patient has history of gout. Left wrist and hand are swollen, warm to the touch. He has been placed on colchicine with dose adjustment for concurrent Coreg administration. (3) Paroxysmal atrial fibrillation Status: Chronic Hospital Course & Plan: Continue chronic Carvedilol with hold parameters and Warfarin. INR 2.54 on 11/25, Warfarin was held for possible surgical procedure. With surgery ruled out at this time, will restart Warfarin on discharge, and recommend INR follow up with PCP. (4) Hypothyroidism Status: Chronic Hospital Course & Plan: Continue chronic Levothyroxine. (5) CAD (coronary artery disease) Status: Chronic Hospital Course & Plan: He has history of [place] with triple bypass in 2010. Continue chronic baby aspirin. Departure Weight (Pounds): 172 Weight (Ounces): 6.0 Result Diagram: 11/25/18 0540 11/25/1840 Condition: Improved Discharge: Assisted Living PT/OT Follow Up For: PT For Strengthening Home Health RN Follow Up For: Wound Care Follow-Up Labs: INR Discharge Instructions Home Meds Active Scripts Colchicine (COLCRYS) 0.6 Mg Tablet, 0.6 MG PO QDAY, #30 TAB Prov:CYNTHIA OROZCO 11/26/18 Cephalexin Monohydrate (CEPHALEXIN) 500 Mg Cap, 500 MG PO QID, #28 CAP Prov:CYNTHIA OROZCO 11/26/18 Carvedilol (COREG) 6.25 Mg Tablet, 1 TAB PO BID, #60 TAB 0 Refills Prov:REYNOLD CHOU MD 11/05/18 Warfarin Sodium (WARFARIN SODIUM) 5 Mg Tablet, 0.5 TAB PO QDAY, #90 TAB 3 Refills 1/2 tab Or 1 tab daily as directed by your doctor. Prov:REYNOLD CHOU MD 11/05/18 Levothyroxine Sodium (LEVOTHYROXINE SODIUM) 137 Mcg Tablet, 1 TAB PO QDAY, #90 TAB 4 Refills Prov:MARCELLA JENKINS PHARMD 07/23/18 Reported Medications Oxygen (OXYGEN) Inha, 2 L INH HS, L 11/26/17 Cholecalciferol (Vitamin D3) (VITAMIN D) 2,000 Unit Tablet, 1 TAB PO QDAY, CAPSULE 05/03/15 Vit A/Vit C/Vit E/Zinc/Copper (PRESERVISION AREDS TABLET) 1 Each Tablet, 1 TAB PO QDAY, TAB 05/03/15 Aspirin (ASPIRIN EC) 81 Mg Tablet.dr, 1 TAB PO QDAY 04/13/14 Discontinued Scripts [Tamsulosin Hcl(*) 0.4 Mg Cap] 0.4 MG CAP No Conflict Check, 0.4 MG PO QDAY, CAP Prov:REGINO HUNG MD 10/15/18 Diet: Regular Activity: As Tolerated, With Walker Special Instructions: Continue Colchicine and follow up with PCP for further management of Gout. Restart Warfarin on existing schedule and check INR on Saturday11/28/18. Follow up Dr. Alejo with at [facility] as discussed WOUND CARE TO BE DONE BY HOME HEALTH NURSE Copies to: DEVONTE ALEJO MD; REYNOLD CHOU MD ; Venous Thromboembolism Antithrombotics Is Pt On Any Antithrombotics?: Yes [id number] Certification Face to Face Home Health Certification Patient's Primary Care Provider: Reynold Chou MD Institutional Provider conducted the [id number] encounter. Electronic Undersigning Physician Certifies Home Health. I certify that the patient has been under my care and that I had a [id number] encounter that meets the physician [id number] encounter requirements with this patient. This patient is home-bound due to safety issues and continues to require assistance with ADL's. I certify that based on my findings, that Nursing, Aides and the following Home Health services are medically necessary: Medical Necessity: Nursing, Rehab Date Face to Face Conducted: Nov 26, 2018 CYNTHIA OROZCO Nov 26, 2018 12:24
[2018-11-26 13:06] VITALS: BP 124/75
== END 2018-11-26 14:20 | disposition home or self-care (01) | DRG 603 ==
LOC: ER 10:53 → MED 13:41
PROVIDERS: ADMIT Internal Medicine; ATTEND Internal Medicine
PROC: 0JDQ3ZZ Extraction of Right Foot Subcutaneous Tissue and Fascia, Percutaneous Approach (ICD-10-PCS; principal; 2018-11-24)
PROC: 0JDQ3ZZ Extraction of Right Foot Subcutaneous Tissue and Fascia, Percutaneous Approach (ICD-10-PCS; 2018-11-26)
DX: L03.031 Cellulitis of right toe (principal); I48.0 Paroxysmal atrial fibrillation; M11.242 Other chondrocalcinosis, left hand; I25.10 Atherosclerotic heart disease of native coronary artery without angina pectoris; Z87.891 Personal history of nicotine dependence; E03.9 Hypothyroidism, unspecified
CPT/HCPCS: 36415; 82040; 82247; 82310; 82374; 82435; 82565; 82947; 83605; 84075; 84132; 84155; 84295; 84450; 84460; 84520; 85025; 85610; 85651; 86140; 87040; 93005; 96361; 96374; 97161; 97165; 99285; J0690; J0696; J2270; J7030; J7040

== ENCOUNTER → 2018-11-28 | Outpatient (CLI) | payer MEDICARE, OTHER ==
[2015-04-10 13:18] VITALS: BMI 26.3
[~2018-11-28] MED LIST changes: +COLC0.6T2 PO
[2018-11-28 10:12] LABS: INR 1.81
== END ==
LOC: LAB 09:15
PROVIDERS: ATTEND Nurse Practitioner Family
DX: Z51.81 Encounter for therapeutic drug level monitoring (principal); Z79.01 Long term (current) use of anticoagulants
CPT/HCPCS: 36415; 85610

== ENCOUNTER → 2018-12-02 | Outpatient (CLI) | payer MEDICARE, OTHER ==
[2015-04-10 13:18] VITALS: BMI 26.3
[2018-12-02 09:23] LABS: INR 2.09
== END ==
LOC: ZZSPRING 02:00
PROVIDERS: ATTEND Pharmacist Pharmacotherapy
DX: Z51.81 Encounter for therapeutic drug level monitoring (principal); I48.0 Paroxysmal atrial fibrillation; Z79.01 Long term (current) use of anticoagulants
CPT/HCPCS: 36415; 85610

== ENCOUNTER → 2018-12-03 | Outpatient (CLI) | payer MEDICARE, OTHER ==
[2015-04-10 13:18] VITALS: BMI 26.3
[2018-12-03 15:28] LABS: PLATELET COUNT, AUTOMATED 265 K/uL (150-450)
--- NOTE | 2018-12-03 16:24 | RADIOLOGY IMAGING REPORT ---
[facility] PATIENT NAME: Tim Fowler : 1930 MR: [id number] V: [id number] EXAM DATE: ORDERING PHYSICIAN: REYNOLD BIANCHI TECHNOLOGIST: [place] [facility] [place] : 1930 Visit/Account:[id number] Date of Sevice: 12/03/2018 Exam type: TOE RIGHT FOOT SECOND DIGIT History: Cellulitis right second toe Comparison: November 23, 2018. Findings: Three views of the right second toe were submitted. There is diffuse osteopenia present. There is s oft tissue swelling surrounding the right second toe. There is marked narrowing and irregularity at the DIP joint of this toe which could be degenerative in nature although erosive changes from osteomy elitis is not totally excluded. Extensive vascular calcifications are seen throughout the right foot . Moderate degenerative changes of the right first MTP and IP joint are present IMPRESSION: 1. Soft tissue swelling about the right second toe. There is marked narrowing and irregularity of t he DIP joint which could be degenerative in nature although erosive changes from osteomyelitis not to tally excluded. Other degenerative changes as described Report Dictated By: Melissa Salcido MD at 12/03/2018 3:52 PM Report E-Signed By: Melissa Salcido MD at 12/03/2018 4:16 PM WSN:[id number]
== END ==
LOC: LAB 14:22
PROVIDERS: ATTEND Internal Medicine
DX: L03.031 Cellulitis of right toe (principal); K40.30 Unilateral inguinal hernia, with obstruction, without gangrene, not specified as recurrent; I48.0 Paroxysmal atrial fibrillation
CPT/HCPCS: 36415; 82040; 82247; 82310; 82374; 82435; 82565; 82947; 84075; 84132; 84155; 84295; 84450; 84460; 84520; 84550; 85025; 85651; 86200

== ENCOUNTER → 2018-12-09 | Outpatient (CLI) | payer MEDICARE, OTHER ==
[2015-04-10 13:18] VITALS: BMI 26.3
[2018-12-09 08:50] LABS: INR 2.64
== END ==
LOC: ZZSPRING 01:26
PROVIDERS: ATTEND Pharmacist Pharmacotherapy
DX: I48.0 Paroxysmal atrial fibrillation (principal)
CPT/HCPCS: 36415; 85610

== ENCOUNTER 2018-12-15 04:08 | Day surgery (SDC) | payer MEDICARE, OTHER ==
[2015-04-10 13:18] VITALS: Ht 182.9 cm; Wt 77.1 kg
[~2018-12-15] VITALS: Ht 182.9 cm; Wt 77.1 kg
[2018-12-15] VITALS (7 sets, daily range): BP systolic 121–158; BP diastolic 62–101
[~2018-12-15 04:08] MED LIST changes: +OMEG-11 PO
[2018-12-15] MEDS ORDERED: FAMOTIDINE 20 MG TAB PO ONE (13:55)
[2018-12-15] MEDS ORDERED: MIDAZOLAM 2 MG/2 ML VIAL IVP PRN (13:55)
[2018-12-15] MEDS ORDERED: NORMOSOL R SOLN(*) 1000 ML BAG 1,000 ML IV PRN (13:55)
[2018-12-15] MEDS ORDERED: LIDOCAINE/SOD BICARB 8.4% SYR ID ONE (13:55)
[2018-12-15] MEDS ORDERED: ceFAZolin(*) 2GM/D5W 50ML 50 ML IVPB ONE (14:30)
[2018-12-15] MEDS ORDERED: ROPIVACAINE 0.5% 20 ML VIAL ONE (14:48)
[2018-12-15] MEDS ORDERED: NEOMYCIN/POLYMYX/BACITR 30 GM TP ONE (14:48)
[2018-12-15 15:24] LABS: INR 1.08
[2018-12-15] MEDS ORDERED: MIDAZOLAM 2 MG/2 ML VIAL ONE (15:41)
[2018-12-15] MEDS ORDERED: PROPOFOL EMUL(*) 10MG/ML 20 ML 20 ML ONE (16:08)
[2018-12-15] MEDS ORDERED: TRAM-420 PO (16:40)
[2018-12-15] MEDS ORDERED: DOCU-416 PO (16:40)
--- NOTE | 2018-12-15 16:48 | Short(Outpt) Discharge Summary ---
Discharge Summary Reason for Hosp/Final Diag: (1) Chronic toe ulcer Status: Chronic Hospital Course & Plan: Right 2nd toe amputation completed without problems. Departure Discharge to: Assisted Living Discharge Instructions Home Meds Active Scripts Docusate Sodium (COLACE) 100 Mg Capsule, 1 CAP PO BID, #30 CAP 0 Refills TAKE WITH A FULL GLASS OF WATER Prov:MAGNO GIBSON MD 12/15/18 Tramadol Hcl (TRAMADOL HCL) 50 Mg Tablet, 1 TAB PO Q4H PRN for PAIN, #14 TAB 0 Refills Prov:MAGNO GIBSON MD 12/15/18 Cephalexin Monohydrate (CEPHALEXIN) 500 Mg Cap, 500 MG PO QID, #28 CAP Prov:REYNOLD BIANCHI MD 12/04/18 Colchicine (COLCRYS) 0.6 Mg Tablet, 0.6 MG PO QDAY, #30 TAB Prov:CYNTHIA OROZCO 11/26/18 Carvedilol (COREG) 6.25 Mg Tablet, 1 TAB PO BID, #60 TAB 0 Refills Prov:REYNOLD BIANCHI MD 11/05/18 Warfarin Sodium (WARFARIN SODIUM) 5 Mg Tablet, 0.5 TAB PO QDAY, #90 TAB 3 Refills 1/2 tab Or 1 tab daily as directed by your doctor. Prov:REYNOLD BIANCHI MD 11/05/18 Levothyroxine Sodium (LEVOTHYROXINE SODIUM) 137 Mcg Tablet, 1 TAB PO QDAY, #90 TAB 4 Refills Prov:MARCELLA JENKINS PHAR[employer]vel 07/23/18 Reported Medications Coamo-3 Fatty Acids/Fish Oil (FISH OIL 1,000 MG CAPSULE) 1 Each Capsule, 1 EACH PO DAILY, CAPSULE 12/12/18 Oxygen (OXYGEN) Inha, 2 L INH HS, L 11/26/17 Cholecalciferol (Vitamin D3) (VITAMIN D) 2,000 Unit Tablet, 1 TAB PO QDAY, CAPSULE 05/03/15 Vit A/Vit C/Vit E/Zinc/Copper (PRESERVISION AREDS TABLET) 1 Each Tablet, 1 TAB PO QDAY, TAB 05/03/15 Aspirin (ASPIRIN EC) 81 Mg Tablet., 1 TAB PO QDAY 04/13/14 Follow up Referrals: General Surgery - 12/31/18 @ Surgery, General with VENU,SHERIE P You have a follow up appointment for suture removal with Dr. Joyce on 12/31/18, at 2:00pm. General Surgery - 01/09/19 @ Surgery, General with MAGNO GIBSON MD You have a follow up appointment scheduled with Dr. Gibson on 01/09/19, at 9:00am. Diet: Regular Activity: As Tolerated Special Instructions: You may remove the white surgical dressing on 12/17/18, then you can shower. Please don't get the dressing wet. After showering, apply antibiotic ointment (bacitracin, neosporin, or triple antibiotic ointment; any of these are OK) to the incision and sutures and cover with a band-aid and change this once every day along with reapplication of the antibiotic ointment daily. After 1 week, just apply a dry band-aid to the amputation site and change this daily. When there's no further drainage, you don't need to apply a new band-aid and you can leave the incision and sutures open to air but don't immerse the incision for 2 weeks. Keep your right foot elevated when you're sitting or laying down but you can walk around as tolerated. Don't drive for 30 days after surgery. Problem Qualifiers (1) Chronic toe ulcer: Laterality: right Non-pressure ulcer stage: with necrosis of bone Qualified Codes: L97.514 - Non-pressure chronic ulcer of other part of right foot with necrosis of bone MAGNO GIBSON MD Dec 15, 2018 16:48
--- NOTE | 2018-12-15 16:55 | Post Operative Progress Note ---
Post Operative Progress Note Date: Dec 15, 2018 Time: 16:45 Surgeon: Kiersten Dictation number: [id number] Anesthesia: TIVA by Dr. Victor, local by Dr. Gibson Pre-Op Diagnosis: Right 2nd toe dorsal ulcer with exposed underlying bone Post-Op Diagnosis: XIN Findings: C/W dx, joint and surrounding tissue infiltrated gout crystals Procedure(s): Right 2nd toe amputation through her proximal phalanx Specimen Removed:(May be N/A): Right 2nd toe Complications: None Fluids: See anesthesia record Estimated Blood Loss: Minimal Date OP Note Dictated: Dec 15, 2018 Time OP Note Dictated: 16:46 MAGNO GIBSON MD Dec 15, 2018 16:55
--- NOTE | 2018-12-16 02:00 | OPERATIVE REPORT 1 ---
EVENT DATE: December 15, 2018 SURGEON: Mario Burch MD ANESTHESIOLOGIST: Tim Victor MD ANESTHESIA: TIVA provided by Dr. Victor, and I performed a digital ring block by Dr. Burch. PREOPERATIVE DIAGNOSIS Right second toe ulcer with exposed bone. POSTOPERATIVE DIAGNOSIS Right second toe ulcer with exposed bone. PROCEDURE PERFORMED Right second toe amputation through the proximal phalanx. SPECIMENS Right second toe. INDICATIONS FOR PROCEDURE This is an 88-year-old gentleman who was referred to my office with an ulcer on the dorsal portion of his second toe over the proximal interphalangeal joint. Assessing this wound, there was underlying exposed bone, and so I recommended amputation of the toe due to the difficulty in getting this to heal, which would be a very prolonged and nearly impossible process, given the appearance of the ulcer with the exposed bone. The patient provided consent for this procedure. DESCRIPTION OF PROCEDURE Patient was brought to the operating room and placed supine on the operating table. TIVA anesthesia was administered, and his right foot was prepped and draped in a sterile fashion. Time-out was completed. I marked the skin, anesthetized the toe in a ring block fashion with 0.5% bupivacaine plain. I made an incision which was in the form of a plantar flap configuration and cut through all of the soft tissues where I marked the skin, all the way down to the bone, and then amputated the toe through the proximal joint, and then used a periosteal elevator to separate all the soft tissues away from the bone. There were copious amounts of uric acid crystals all around the joint and into the subcutaneous tissues. I was able to get proximal to these and divided the proximal phalanx through the proximal portion of the shaft, and then removed this bone and passed it off the field. I then used a rongeur and debrided the divided bone, including all the sharp edges. I then debrided the subcutaneous tissues of all the uric acid crystals. I irrigated and dried this wound and then reapproximated the flexor and extensor tendons over the divided bone with interrupted 3-0 Vicryl sutures, then closed the skin with interrupted 2-0 nylon sutures. The skin was cleaned, dried, and bacitracin antibiotic ointment was applied to the incision and sutures, followed by a sterile surgical dressing. The patient was then brought to the recovery room in good condition, having tolerated the procedure without apparent problems. KATHY
== END 2018-12-15 17:30 | disposition home or self-care (01) ==
LOC: OR 04:08
PROVIDERS: ATTEND Surgery
DX: L97.514 Non-pressure chronic ulcer of other part of right foot with necrosis of bone (principal); I25.2 Old myocardial infarction; Z79.01 Long term (current) use of anticoagulants
CPT/HCPCS: 28825; 85610; 88305; A9270; J2250; J2704; J2795; J0690

== ENCOUNTER → 2018-12-23 | Outpatient (CLI) | payer MEDICARE, OTHER ==
[2015-04-10 13:18] VITALS: BMI 26.3
[~2018-12-23] MED LIST changes: +DOCU-416 PO; +TRAM-420 PO
[2018-12-23 09:06] LABS: INR 1.43
== END ==
LOC: ZZSPRING 02:34
PROVIDERS: ATTEND Pharmacist Pharmacotherapy
DX: Z51.81 Encounter for therapeutic drug level monitoring (principal); I48.0 Paroxysmal atrial fibrillation
CPT/HCPCS: 36415; 85610